=== PATIENT | female | born 1990 | race Two or more races ===

== ENCOUNTER 2018-09-10 16:31 | Emergency (ER) | payer MEDICARE, MEDICAID ==
[~2018-09-10] VITALS: Ht 152.4 cm; Wt 80.0 kg
[~2018-09-10 16:31] MED LIST: ATOR20TA66 PO; BLOO-384; DULO60CA45 PO; GABA-532 PO; HYDR-3972 PO; INSU100V30 SQ; LANTUS SUBCUT; LISI10TA4 PO; LORA-269 PO; PANT-47 PO
[2018-09-10 17:15] LABS: URINE HCG NEGATIVE (NEG)
[2018-09-10 17:16] LABS: CLARITY,URINE SLIGHTLY CLOUDY (Clear); COLOR,URINE YELLOW (Yellow); GLUCOSE, URINE 100 mg/dl (Neg); KETONES,URINE TRACE mg/dl (Neg); LEUKOCYTE ESTERASE ,URINE TRACE (Neg); NITRITES, URINE NEGATIVE (Neg); OCCULT BLOOD,URINE MODERATE (Neg); PROTEIN,URINE 100 mg/dl (Neg); UROBILINOGEN,URINE 0.2 E.U/dL (0.2-1.0)
[2018-09-10 17:24] LABS: UA COLLECTION TYPE CLN CATCH MIDSTREAM
[2018-09-10 17:30] LABS: MUCUS STRANDS MANY /LPF (Neg); SQUAMOUS EPITHELIAL CELL,UR MANY /LPF (FEW)
[2018-09-10] MEDS ORDERED: normal saline 1000ml 1,000 ML IV ONE (17:30)
[2018-09-10] MEDS ORDERED: ondansetron/PF 4mg/2ml inj IV ONE ×2 (17:30→17:40)
[2018-09-10 17:31] LABS: BACTERIA,URINE 3+ /HPF (Neg)
[2018-09-10] MEDS ORDERED: HYDROmorphone inj. 0.5 MG/0.5 ML DISP.SYRIN IV ONE (17:40)
[2018-09-10 17:55] LABS: BASOPHILS % (AUTO) 0 % (0-1); EOSINOPHILS # (AUTO) 0.1 X10'3 (0-0.9); EOSINOPHILS % (AUTO) 0.7 % (0-6); HEMATOCRIT 41.2 % (35.0-45.0); HEMOGLOBIN 13.8 g/dl (12.0-16.0); LYMPHOCYTES # (AUTO) 1.2 X10'3 (1.1-4.8); LYMPHOCYTES % (AUTO) 9.4 % (21-51); MEAN CORPUSCULAR HEMOGLOBIN 29.9 PG (27.0-31.0); MEAN CORPUSCULAR HGB CONC 33.5 % (33.0-36.5); MEAN CORPUSCULAR VOLUME 89.2 FL (78-98); MEAN PLATELET VOLUME 9.2 FL (7.4-10.4); MONOCYTES # (AUTO) 0.4 X10'3 (0-0.9); MONOCYTES % (AUTO) 3.5 % (2-12); NEUTROPHILS # (AUTO) 10.6 X10'3 (1.8-7.7); NEUTROPHILS % (AUTO) 86.4 % (42-75); PLATELET COUNT 325 X10'3 (140-440); RED BLOOD COUNT 4.62 X10'6 (4.20-5.60); RED CELL DISTRIBUTION WIDTH 14.5 % (11.5-14.5); WHITE BLOOD COUNT 12.3 X10'3 (4.5-11.0)
[2018-09-10 17:59] LABS: ALANINE AMINOTRANSFERASE 16 U/L (12-78); ALBUMIN 2.7 G/DL (3.4-5.0); ALBUMIN/GLOBULIN RATIO 0.7 (1.1-1.5); ALKALINE PHOSPHATASE 120 IU/L (46-116); ANION GAP 14 (8-16); ASPARTATE AMINO TRANSFERASE 13 U/L (10-37); BILIRUBIN,TOTAL 0.2 MG/DL (0.1-1.0); BLOOD UREA NITROGEN 30 MG/DL (7-18); BUN/CREATININE RATIO 32.3 (6.6-38.0); CALCIUM 8.7 MG/DL (8.5-10.1); CHLORIDE 102 MMOL/L (99-107); CREATININE 0.93 MG/DL (0.40-0.90); GLUCOSE 275 MG/DL (70-104); LIPASE 55 U/L (73-393); POTASSIUM 4.2 MMOL/L (3.5-5.1); SODIUM 139 MMOL/L (135-145); TOTAL CARBON DIOXIDE 22.7 MMOL/L (24-32); TOTAL PROTEIN 6.6 G/DL (6.4-8.2); eGFR 71 ML/MIN
[2018-09-10 18:41] LABS: TOTAL CELLS COUNTED 100
[2018-09-10 18:44] LABS: PLATELET ESTIMATE NORMAL
[2018-09-10 19:01] LABS: ABG BASE EXCESS -5.7 mmol/L (-2.0-3.0); ABG HCO3 17.2 mmol/L (22.0-26.0); ABG OXYGEN SATURATION 96.7 % (95-98); ABG PCO2 (T) 27.1 mmHg (32.0-45.0); ABG PH (T) 7.421 (7.350-7.450); ALLEN'S TEST Positive; FCOHb 1.7 % (0.5-1.5); FLOW 1 L/min; FO2Hb 95.1 % (94-100); PATIENT TEMPERATURE 36.8; TOTAL HEMOGLOBIN 13.8 G/dl (12.0-16.0)
[2018-09-10] MEDS ORDERED: HYDROmorphone 2mg/ml vial IV PRN (19:35)
[2018-09-10] MEDS ORDERED: HYDROmorphone 1 mg/ml syringe IV PRN (19:37)
[2018-09-10 20:18] LABS: URINE AMPHETAMINE SCREEN NEGATIVE (Neg); URINE BARBITUATE SCREEN NEGATIVE (Neg); URINE BENZODIAZEPINES SCREEN NEGATIVE (Neg); URINE CANNABINOID SCREEN POSITIVE (Neg); URINE COCAINE SCREEN NEGATIVE (Neg); URINE METHADONE SCREEN NEGATIVE (Neg); URINE OPIATE SCREEN POSITIVE (Neg); URINE PHENCYCLIDINE SCREEN NEGATIVE (Neg)
[2018-09-10] MEDS ORDERED: LORazepam 2 mg/ml vial IV ONE (20:45)
[2018-09-10] MEDS ORDERED: normal saline 1000ML IV soln IVB ONE (20:45)
[2018-09-10 22:06] VITALS: BP 141/88
[2018-09-10] MEDS ORDERED: OMEP20CA10 PO (22:14)
[2018-09-10] MEDS ORDERED: HYDR-3965 PO (22:14)
[2018-09-10] MEDS ORDERED: ONDA4TAB9 SL (22:14)
[2018-09-10] MEDS ORDERED: FAMO20TA44 PO (22:14)
[2018-09-10 22:50] LABS: CHOL/HDL RATIO 5.2 (0.00-4.99); CHOLESTEROL 258 MG/DL (0-200); HDL CHOLESTEROL 50 MG/DL (35-60); LDL CHOLESTEROL 162 MG/DL (50-100); TRIGLYCERIDES 328 MG/DL (20-135)
== END 2018-09-10 22:48 | disposition home or self-care (01) ==
LOC: ER 16:31
DX: E10.65 Type 1 diabetes mellitus with hyperglycemia (principal); F12.90 Cannabis use, unspecified, uncomplicated; E87.3 Alkalosis; E78.00 Pure hypercholesterolemia, unspecified; I10 Essential (primary) hypertension; Z86.69 Personal history of other diseases of the nervous system and sense organs; Z56.0 Unemployment, unspecified; Z98.890 Other specified postprocedural states; Z91.048 Other nonmedicinal substance allergy status; Z88.8 Allergy status to other drugs, medicaments and biological substances; Z79.899 Other long term (current) drug therapy; Z79.4 Long term (current) use of insulin
CPT/HCPCS: 36415; 36600; 74176; 80053; 80061; 80305; 81001; 81025; 82803; 82948; 83690; 84484; 85018; 85025; 85379; 96361; 96374; 96375; 96376; 99285; J1170; J2060; J2405

== ENCOUNTER 2018-09-18 04:29 | Inpatient (IN) | payer MEDICARE, MEDICAID ==
[~2018-09-18] VITALS: Ht 167.6 cm; Wt 87.0 kg
[~2018-09-18 04:29] MED LIST changes: +FAMO20TA44 PO; +HYDR-3965 PO; +OMEP20CA10 PO; +ONDA4TAB9 SL
[2018-09-18] MEDS ORDERED: normal saline 1000ML IV soln IVB ONE (04:45)
[2018-09-18] MEDS ORDERED: morphine 4 MG/ML inj SYRINge IV ONE (05:00)
[2018-09-18] MEDS ORDERED: ondansetron/PF 4mg/2ml inj IV ONE (05:00)
[2018-09-18 05:10] LABS: BASOPHILS % (AUTO) 0.3 % (0-1); EOSINOPHILS % (AUTO) 0.1 % (0-6); HEMATOCRIT 39.9 % (35.0-45.0); LYMPHOCYTES % (AUTO) 10.6 % (21-51); MEAN CORPUSCULAR HEMOGLOBIN 29.9 PG (27.0-31.0); MEAN CORPUSCULAR HGB CONC 32.5 % (33.0-36.5); MEAN CORPUSCULAR VOLUME 91.8 FL (78-98); MONOCYTES # (AUTO) 0.8 X10'3 (0-0.9); MONOCYTES % (AUTO) 8.2 % (2-12); NEUTROPHILS # (AUTO) 7.7 X10'3 (1.8-7.7); NEUTROPHILS % (AUTO) 80.8 % (42-75); PLATELET COUNT 320 X10'3 (140-440); RED BLOOD COUNT 4.34 X10'6 (4.20-5.60); RED CELL DISTRIBUTION WIDTH 14.9 % (11.5-14.5); WHITE BLOOD COUNT 9.5 X10'3 (4.5-11.0)
[2018-09-18 05:29] LABS: ALANINE AMINOTRANSFERASE 19 U/L (12-78); ALBUMIN 2.7 G/DL (3.4-5.0); ALBUMIN/GLOBULIN RATIO 0.6 (1.1-1.5); ALKALINE PHOSPHATASE 132 IU/L (46-116); ANION GAP 30 (8-16); ASPARTATE AMINO TRANSFERASE 18 U/L (10-37); BILIRUBIN,TOTAL 0.4 MG/DL (0.1-1.0); BLOOD UREA NITROGEN 16 MG/DL (7-18); BUN/CREATININE RATIO 13.6 (6.6-38.0); CALCIUM 8.5 MG/DL (8.5-10.1); CHLORIDE 93 MMOL/L (99-107); CREATININE 1.18 MG/DL (0.40-0.90); LIPASE < 50 U/L (73-393); POTASSIUM 4.8 MMOL/L (3.5-5.1); SODIUM 133 MMOL/L (135-145); eGFR 54 ML/MIN
[2018-09-18 05:41] LABS: GLUCOSE 614 MG/DL (70-104)
[2018-09-18 05:42] LABS: TOTAL CARBON DIOXIDE 10.5 MMOL/L (24-32)
[2018-09-18] MEDS ORDERED: sodium bicarbonate (8.4%) inj. 100 MEQ in dextrose 5% water 500ml 500 ML IV PRN ×2 (05:54→08:27)
[2018-09-18] MEDS ORDERED: sodium bicarbonate (8.4%) inj. 50 MEQ in dextrose 5% water 500ml 250 ML IV PRN ×2 (05:54→08:27)
[2018-09-18] MEDS ORDERED: insulin regular, DKA only 100 UNIT in normal saline 100ml IV soln 99 ML IV SCH ×6 (05:54→13:04)
[2018-09-18] MEDS ORDERED: sodium phosphate inj. 30 MMOL in dextrose 5%-water 250 ML IV PRN ×2 (05:55→08:30)
[2018-09-18] MEDS ORDERED: potassium Cl 40MEQ/NS 500ml 500 ML IV PRN ×4 (05:55→08:30)
[2018-09-18] MEDS ORDERED: insulin regular, human vial - multi-dose IV PRN ×2 (05:55→08:30)
[2018-09-18] MEDS ORDERED: potassium Cl 20 mEq SR tablet PO PRN ×3 (05:55→08:30)
[2018-09-18] MEDS ORDERED: Neutra Phos packet PO PRN (05:55)
[2018-09-18] MEDS ORDERED: sodium phosphate inj. 15 MMOL in dextrose 5%-water 150 ML IV PRN ×2 (05:55→08:30)
[2018-09-18 06:03] LABS: CLARITY,URINE CLEAR (Clear); COLOR,URINE YELLOW (Yellow); GLUCOSE, URINE >=1000 mg/dl (Neg); KETONES,URINE >=80 mg/dl (Neg); LEUKOCYTE ESTERASE ,URINE NEGATIVE (Neg); NITRITES, URINE NEGATIVE (Neg); OCCULT BLOOD,URINE MODERATE (Neg); PH,URINE 5.5 (4.8-8.0); PROTEIN,URINE 30 mg/dl (Neg); UROBILINOGEN,URINE 0.2 E.U/dL (0.2-1.0)
[2018-09-18 06:05] LABS: UA COLLECTION TYPE CLN CATCH MIDSTREAM
[2018-09-18 06:11] LABS: BACTERIA,URINE FEW /HPF (Neg); MUCUS STRANDS NONE SEEN /LPF (Neg); RBC,URINE NONE SEEN /HPF (0-2); SQUAMOUS EPITHELIAL CELL,UR MODERATE /LPF (FEW); WBC,URINE 0-4 /HPF (0-4)
[2018-09-18] MEDS: normal saline 1000ml 1,000 ML IV SCH ×5 (06:11→16:27)
[2018-09-18] MEDS ORDERED: proCHLORperazine 10 MG/2 ml inj IV ONE (07:00)
[2018-09-18] MEDS ORDERED: ONDA4TAB12 PO (07:18)
[2018-09-18] MEDS ORDERED: INSU100V11 (07:18)
[2018-09-18] MEDS ORDERED: OMEP-50 PO (07:18)
[2018-09-18] MEDS ORDERED: HYDR-4353 PO (07:19)
[2018-09-18 07:46] LABS: URINE HCG NEGATIVE (NEG)
[2018-09-18 07:56] LABS: OXYGEN SATURATION (MIXED VEN) 97.3 % (60-80)
[2018-09-18] MEDS ORDERED: K and/or MAG REPLACEMENT MC SCH (08:00)
[2018-09-18 08:21] LABS: ABG BASE EXCESS -25.2 mmol/L (-2.0-3.0); ABG HCO3 3.6 mmol/L (22.0-26.0); ABG OXYGEN SATURATION 91.5 % (95-98); ABG PH (T) 7.032 (7.350-7.450); ABG PO2 (T) 80.5 mmHg (83-108); ALLEN'S TEST Positive; FCOHb 0.5 % (0.5-1.5); FMetHb 0.1 % (0.3-1.12); TOTAL HEMOGLOBIN 12.4 G/dl (12.0-16.0)
[2018-09-18] MEDS ORDERED: potassium CL 20mEq in D5-1/2NS 1,000 ML IV PRN (08:27)
[2018-09-18] MEDS ORDERED: HYDROcodone/acetaminophen 5mg/325mg tablet PO PRN (08:30)
[2018-09-18] MEDS ORDERED: magnesium hydroxide 30ml (MOM) UD suspension PO PRN (08:30)
[2018-09-18] MEDS ORDERED: mag hydrox/Alum hydrox/simeth 30ml oral suspension PO PRN ×2 (08:30→08:45)
[2018-09-18] MEDS ORDERED: mag hydrox/Alum hydrox/simeth 30ml oral suspension PO ONE (08:30)
[2018-09-18] MEDS ORDERED: acetaminophen 325mg tablet PO PRN ×2 (08:30)
[2018-09-18] MEDS ORDERED: HYDROmorphone 1 mg/ml syringe IV PRN ×2 (08:30)
[2018-09-18] MEDS: sucralfate 1gm/10ml UD suspension PO SCH ×4 (08:34→21:05)
[2018-09-18] MEDS ORDERED: proCHLORperazine 10 MG/2 ml inj IV PRN (08:45)
[2018-09-18 09:28] LABS: ANION GAP 24 (8-16); BLOOD UREA NITROGEN 16 MG/DL (7-18); BUN/CREATININE RATIO 16.7 (6.6-38.0); CALCIUM 6.3 MG/DL (8.5-10.1); CHLORIDE 111 MMOL/L (99-107); CREATININE 0.96 MG/DL (0.40-0.90); GLUCOSE 370 MG/DL (70-104); PHOSPHORUS 2.7 MG/DL (2.3-4.5); POTASSIUM 3.7 MMOL/L (3.5-5.1); SODIUM 142 MMOL/L (135-145); eGFR 68 ML/MIN
[2018-09-18 09:39] LABS: TOTAL CARBON DIOXIDE 7.3 MMOL/L (24-32)
[2018-09-18 10:30] VITALS: BP 123/79
[2018-09-18] MEDS ORDERED: HYDROCORTISONE 0.5% TP SCH (13:00)
[2018-09-18 13:46] LABS: ABG BASE EXCESS -10.7 mmol/L (-2.0-3.0); ABG HCO3 14.1 mmol/L (22.0-26.0); ABG OXYGEN SATURATION 97.3 % (95-98); ABG PCO2 (T) 28.3 mmHg (32.0-45.0); ABG PH (T) 7.314 (7.350-7.450); ABG PO2 (T) 96.3 mmHg (83-108); ALLEN'S TEST Positive; FCOHb 0.3 % (0.5-1.5); RESPIRATORY RATE (OBSERVED) 16 b/min; TOTAL HEMOGLOBIN 12.4 G/dl (12.0-16.0)
[2018-09-18 15:11] LABS: ALBUMIN 2.1 G/DL (3.4-5.0); ANION GAP 14 (8-16); BLOOD UREA NITROGEN 13 MG/DL (7-18); BUN/CREATININE RATIO 15.5 (6.6-38.0); CALCIUM 7.3 MG/DL (8.5-10.1); CHLORIDE 112 MMOL/L (99-107); CREATININE 0.84 MG/DL (0.40-0.90); GLUCOSE 88 MG/DL (70-104); PHOSPHORUS 2.2 MG/DL (2.3-4.5); SODIUM 143 MMOL/L (135-145); TOTAL CARBON DIOXIDE 17.5 MMOL/L (24-32); eGFR 80 ML/MIN
[2018-09-18] MEDS: HYDROcodone/acetaminophen 10/325mg tab PO PRN ×2 (15:16→21:04)
[2018-09-18] MEDS: potassium CL 20mEq in D5-1/2NS 1,000 ML IV SCH ×2 (15:53→17:22)
[2018-09-18 16:06] VITALS: BP 165/92
[2018-09-18 19:00] VITALS: BP 164/95
[2018-09-18 20:03] LABS: ANION GAP 10 (8-16); BLOOD UREA NITROGEN 8 MG/DL (7-18); BUN/CREATININE RATIO 11.6 (6.6-38.0); CHLORIDE 110 MMOL/L (99-107); CREATININE 0.69 MG/DL (0.40-0.90); GLUCOSE 82 MG/DL (70-104); PHOSPHORUS 1.6 MG/DL (2.3-4.5); POTASSIUM 3.5 MMOL/L (3.5-5.1); SODIUM 140 MMOL/L (135-145); TOTAL CARBON DIOXIDE 20.1 MMOL/L (24-32); eGFR > 90 ML/MIN
[2018-09-18] MEDS: atorvastatin 20mg tablet PO SCH (20:11)
[2018-09-18] MEDS: LORazepam 1 MG tablet PO SCH (20:11)
[2018-09-18] MEDS: pantoprazole 40mg Tablet.DR PO SCH (20:12)
[2018-09-18] MEDS: temazepam 15mg capsule PO PRN (21:05)
[2018-09-18 23:04] VITALS: BP 148/93
[2018-09-18] MEDS ORDERED: insulin glargine (Lantus) pen - multi-dose SQ ONE (23:40)
[2018-09-19] MEDS: normal saline 1000ml 1,000 ML IV SCH ×6 (00:27→23:42)
[2018-09-19] MEDS: potassium CL 20mEq in D5-1/2NS 1,000 ML IV SCH ×4 (01:20→15:42)
[2018-09-19] MEDS: insulin Lispro (HumaLOG) vial - multi-dose SQ SCH ×3 (02:04→08:43)
[2018-09-19] MEDS: HYDROcodone/acetaminophen 10/325mg tab PO PRN ×3 (02:39→10:51)
[2018-09-19 03:09] VITALS: BP 140/88
[2018-09-19] MEDS: sucralfate 1gm/10ml UD suspension PO SCH ×5 (06:56→21:03)
[2018-09-19 07:23] LABS: ANION GAP 11 (8-16); BLOOD UREA NITROGEN 6 MG/DL (7-18); CALCIUM 7.6 MG/DL (8.5-10.1); CHLORIDE 108 MMOL/L (99-107); CREATININE 0.75 MG/DL (0.40-0.90); GLUCOSE 142 MG/DL (70-104); PHOSPHORUS 1.4 MG/DL (2.3-4.5); POTASSIUM 3.6 MMOL/L (3.5-5.1); SODIUM 139 MMOL/L (135-145); TOTAL CARBON DIOXIDE 19.8 MMOL/L (24-32); eGFR > 90 ML/MIN
[2018-09-19 07:33] VITALS: BP 141/85
[2018-09-19] MEDS ORDERED: dextrose ORAL solution 15 GM/59 ML bottle PO PRN ×2 (07:50)
[2018-09-19] MEDS ORDERED: insulin Lispro (HumaLOG) vial - multi-dose SQ SCH (07:50)
[2018-09-19] MEDS ORDERED: dextrose 50%-water 50ml dispensing syringe IV PRN ×2 (07:50)
[2018-09-19] MEDS ORDERED: glucagon, human recombinant 1mg kit SUBCUT PRN (07:50)
[2018-09-19] MEDS: K and/or MAG REPLACEMENT MC SCH (08:00)
[2018-09-19] MEDS ORDERED: insulin glargine (Lantus) pen - multi-dose SQ SCH ×2 (08:00→21:00)
[2018-09-19] MEDS: pantoprazole 40mg Tablet.DR PO SCH ×2 (08:32→21:03)
[2018-09-19] MEDS: lisinopril 10 MG tablet PO SCH (08:32)
[2018-09-19] MEDS: LORazepam 1 MG tablet PO SCH ×2 (08:32→21:03)
[2018-09-19] MEDS: duloxetine 30mg CAPSULE.DR PO SCH (08:33)
[2018-09-19] MEDS: Neutra Phos packet PO PRN ×2 (09:15→15:59)
[2018-09-19] MEDS: ondansetron/PF 4mg/2ml inj IV PRN ×2 (10:51→17:50)
[2018-09-19 12:21] VITALS: BP 164/99
[2018-09-19 15:50] VITALS: BP 157/98
[2018-09-19 18:00] VITALS: BP 184/106
[2018-09-19] MEDS ORDERED: morphine 2 MG/ML inj. syringe IV PRN (18:05)
[2018-09-19] MEDS ORDERED: HYDROmorphone inj. 0.5 MG/0.5 ML DISP.SYRIN IV PRN (19:10)
[2018-09-19] MEDS ORDERED: iohexol 350MG/ML 100ml bottle IV ONE (19:30)
[2018-09-19] MEDS: HYDROmorphone 1 mg/ml syringe IV PRN (19:36)
[2018-09-19] MEDS: MESSAGE TO NURSING PO SCH (19:50)
[2018-09-19] MEDS ORDERED: Neutra Phos packet PO PRN (20:50)
[2018-09-19] MEDS: insulin glargine (Lantus) pen - multi-dose SQ SCH (20:59)
[2018-09-19] MEDS: atorvastatin 20mg tablet PO SCH (21:03)
[2018-09-19] MEDS ORDERED: amLODIPine 2.5mg tablet PO ONE (22:45)
[2018-09-20] VITALS (7 sets, daily range): BP systolic 164–190; BP diastolic 92–117
[2018-09-20] MEDS ORDERED: enalaprilat dihydrate 2.5mg/2ml vial IV SCH (03:10)
[2018-09-20] MEDS: HYDROmorphone 1 mg/ml syringe IV PRN ×4 (03:43→21:03)
[2018-09-20] MEDS: normal saline 1000ml 1,000 ML IV SCH ×2 (06:08→07:58)
[2018-09-20 06:56] LABS: BASOPHILS % (AUTO) 0.2 % (0-1); EOSINOPHILS % (AUTO) 0.2 % (0-6); HEMATOCRIT 34.2 % (35.0-45.0); HEMOGLOBIN 11.3 g/dl (12.0-16.0); LYMPHOCYTES # (AUTO) 1.1 X10'3 (1.1-4.8); LYMPHOCYTES % (AUTO) 19.9 % (21-51); MEAN CORPUSCULAR HEMOGLOBIN 29.6 PG (27.0-31.0); MEAN CORPUSCULAR VOLUME 89.6 FL (78-98); MEAN PLATELET VOLUME 8.2 FL (7.4-10.4); MONOCYTES # (AUTO) 0.6 X10'3 (0-0.9); MONOCYTES % (AUTO) 10.1 % (2-12); NEUTROPHILS # (AUTO) 3.9 X10'3 (1.8-7.7); NEUTROPHILS % (AUTO) 69.6 % (42-75); PLATELET COUNT 258 X10'3 (140-440); RED BLOOD COUNT 3.82 X10'6 (4.20-5.60); RED CELL DISTRIBUTION WIDTH 14.7 % (11.5-14.5); WHITE BLOOD COUNT 5.6 X10'3 (4.5-11.0)
[2018-09-20] MEDS: sucralfate 1gm/10ml UD suspension PO SCH ×5 (07:00→21:10)
[2018-09-20 07:02] LABS: ALBUMIN 1.9 G/DL (3.4-5.0); ANION GAP 8 (8-16); BLOOD UREA NITROGEN 3 MG/DL (7-18); BUN/CREATININE RATIO 5.9 (6.6-38.0); CALCIUM 7.4 MG/DL (8.5-10.1); CHLORIDE 105 MMOL/L (99-107); CREATININE 0.51 MG/DL (0.40-0.90); GLUCOSE 116 MG/DL (70-104); LIPASE < 50 U/L (73-393); MAGNESIUM 1.7 MG/DL (1.5-2.4); PHOSPHORUS 2.5 MG/DL (2.3-4.5); POTASSIUM 3.4 MMOL/L (3.5-5.1); SODIUM 139 MMOL/L (135-145); TOTAL CARBON DIOXIDE 25.7 MMOL/L (24-32); eGFR > 90 ML/MIN
[2018-09-20] MEDS: potassium Cl 20 mEq SR tablet PO PRN ×3 (07:58→16:16)
[2018-09-20] MEDS: LORazepam 1 MG tablet PO SCH ×2 (08:00→21:09)
[2018-09-20] MEDS: duloxetine 30mg CAPSULE.DR PO SCH (08:00)
[2018-09-20] MEDS: lisinopril 10 MG tablet PO SCH (08:01)
[2018-09-20] MEDS: K and/or MAG REPLACEMENT MC SCH (08:22)
[2018-09-20] MEDS: pantoprazole 40mg Tablet.DR PO SCH ×2 (08:33→21:20)
[2018-09-20] MEDS: CefTRIAXone 2gm/D5W 50ml 50 ML IV SCH (09:25)
[2018-09-20] MEDS: metroNIDAZOLE-Flagyl 500mg/NS 100 ML IV SCH ×2 (09:25→16:17)
[2018-09-20] MEDS: MESSAGE TO NURSING PO SCH (10:12)
[2018-09-20] MEDS: HYDROcodone/acetaminophen 10/325mg tab PO PRN (19:03)
[2018-09-20] MEDS ORDERED: enalaprilat dihydrate 2.5mg/2ml vial IV ONE (19:20)
[2018-09-20] MEDS ORDERED: glucagon, human recombinant 1mg kit SUBCUT PRN (19:20)
[2018-09-20] MEDS ORDERED: MESSAGE TO PHARMACY PO ONE (19:20)
[2018-09-20] MEDS ORDERED: dextrose ORAL solution 15 GM/59 ML bottle PO PRN ×2 (19:20)
[2018-09-20] MEDS ORDERED: dextrose 50%-water 50ml dispensing syringe IV PRN ×2 (19:20)
[2018-09-20] MEDS: insulin Lispro (HumaLOG) vial - multi-dose SQ SCH (19:54)
[2018-09-20] MEDS: atorvastatin 20mg tablet PO SCH (21:10)
[2018-09-20] MEDS: insulin glargine (Lantus) pen - multi-dose SQ SCH (21:16)
[2018-09-20] MEDS: temazepam 15mg capsule PO PRN (21:19)
[2018-09-21] VITALS (12 sets, daily range): BP systolic 146–199; BP diastolic 95–160
[2018-09-21] MEDS: metroNIDAZOLE-Flagyl 500mg/NS 100 ML IV SCH ×3 (00:20→17:08)
[2018-09-21] MEDS: normal saline 1000ml 1,000 ML IV SCH ×3 (00:21→22:19)
[2018-09-21] MEDS: HYDROmorphone 1 mg/ml syringe IV PRN ×3 (02:58→19:46)
[2018-09-21] MEDS: K and/or MAG REPLACEMENT MC SCH (06:57)
[2018-09-21] MEDS: sucralfate 1gm/10ml UD suspension PO SCH ×4 (07:00→22:19)
[2018-09-21] MEDS: pantoprazole 40mg Tablet.DR PO SCH ×2 (07:00→19:15)
[2018-09-21] MEDS: LORazepam 1 MG tablet PO SCH ×2 (07:01→19:15)
[2018-09-21] MEDS: HYDROcodone/acetaminophen 10/325mg tab PO PRN (07:01)
[2018-09-21] MEDS: duloxetine 30mg CAPSULE.DR PO SCH (07:02)
[2018-09-21] MEDS: CefTRIAXone 2gm/D5W 50ml 50 ML IV SCH (07:02)
[2018-09-21 07:04] LABS: BASOPHILS % (AUTO) 0.4 % (0-1); EOSINOPHILS % (AUTO) 0.8 % (0-6); HEMATOCRIT 34.6 % (35.0-45.0); HEMOGLOBIN 11.3 g/dl (12.0-16.0); LYMPHOCYTES # (AUTO) 1.5 X10'3 (1.1-4.8); LYMPHOCYTES % (AUTO) 25.3 % (21-51); MEAN CORPUSCULAR HEMOGLOBIN 29.7 PG (27.0-31.0); MEAN CORPUSCULAR HGB CONC 32.5 % (33.0-36.5); MEAN CORPUSCULAR VOLUME 91.2 FL (78-98); MEAN PLATELET VOLUME 8.3 FL (7.4-10.4); MONOCYTES # (AUTO) 0.4 X10'3 (0-0.9); MONOCYTES % (AUTO) 7.6 % (2-12); NEUTROPHILS # (AUTO) 3.9 X10'3 (1.8-7.7); NEUTROPHILS % (AUTO) 65.9 % (42-75); PLATELET COUNT 262 X10'3 (140-440); RED BLOOD COUNT 3.79 X10'6 (4.20-5.60); RED CELL DISTRIBUTION WIDTH 14.9 % (11.5-14.5); WHITE BLOOD COUNT 5.9 X10'3 (4.5-11.0)
[2018-09-21] MEDS: lisinopril 10 MG tablet PO SCH (07:18)
[2018-09-21 07:20] LABS: ALBUMIN 1.9 G/DL (3.4-5.0); ANION GAP 7 (8-16); BLOOD UREA NITROGEN 4 MG/DL (7-18); BUN/CREATININE RATIO 7.4 (6.6-38.0); CALCIUM 8.4 MG/DL (8.5-10.1); CHLORIDE 107 MMOL/L (99-107); CREATININE 0.54 MG/DL (0.40-0.90); GLUCOSE 231 MG/DL (70-104); MAGNESIUM 1.7 MG/DL (1.5-2.4); PHOSPHORUS 3.3 MG/DL (2.3-4.5); POTASSIUM 3.8 MMOL/L (3.5-5.1); SODIUM 141 MMOL/L (135-145); TOTAL CARBON DIOXIDE 27.1 MMOL/L (24-32); eGFR > 90 ML/MIN
[2018-09-21] MEDS: lactobacillus rhamnosus 10,000 MMU CELLS/CAPSULE PO SCH ×2 (07:21→19:15)
[2018-09-21] MEDS: insulin Lispro (HumaLOG) vial - multi-dose SQ SCH ×2 (09:07→19:26)
[2018-09-21] MEDS: MESSAGE TO NURSING PO SCH (10:00)
[2018-09-21] MEDS ORDERED: enalaprilat dihydrate 2.5mg/2ml vial IV ONE (13:05)
[2018-09-21 13:36] LABS: C DIFF ANTIGEN SEE COMMENTS (NEGATIVE); C DIFF SPECIMEN=DIARRHEA? ACCEPTABLE; C DIFFICILE TOXINS A&B NEGATIVE (Neg)
[2018-09-21] MEDS ORDERED: HYDROmorphone 1 mg/ml syringe IV ONE (14:25)
[2018-09-21] MEDS ORDERED: labetalol 20mg/4ml (5mg/ml) syringe IV ONE (14:25)
[2018-09-21 15:01] LABS: C DIFF TOXIN (LAMP) NEGATIVE (NEG)
[2018-09-21] MEDS ORDERED: lisinopril 10 MG tablet PO ONE (16:40)
[2018-09-21] MEDS: nitroGLYCERIN 0.4mg SUBLingual tab SL PRN ×3 (18:50→19:12)
[2018-09-21] MEDS: enalaprilat dihydrate 2.5mg/2ml vial IV PRN (19:47)
[2018-09-21] MEDS ORDERED: insulin glargine (Lantus) pen - multi-dose SQ ONE (21:00)
[2018-09-21] MEDS: atorvastatin 20mg tablet PO SCH (22:19)
[2018-09-21] MEDS: temazepam 15mg capsule PO PRN (22:19)
[2018-09-21] MEDS: labetalol 20mg/4ml (5mg/ml) syringe IV PRN (22:36)
[2018-09-22] VITALS (15 sets, daily range): BP systolic 144–220; BP diastolic 94–130
[2018-09-22] MEDS: metroNIDAZOLE-Flagyl 500mg/NS 100 ML IV SCH ×3 (00:36→16:11)
[2018-09-22 00:55] LABS: BASOPHILS % (AUTO) 0.8 % (0-1); EOSINOPHILS # (AUTO) 0.1 X10'3 (0-0.9); EOSINOPHILS % (AUTO) 1.7 % (0-6); HEMATOCRIT 31.9 % (35.0-45.0); HEMOGLOBIN 10.7 g/dl (12.0-16.0); LYMPHOCYTES # (AUTO) 1.7 X10'3 (1.1-4.8); LYMPHOCYTES % (AUTO) 41.7 % (21-51); MEAN CORPUSCULAR HEMOGLOBIN 30.2 PG (27.0-31.0); MEAN CORPUSCULAR HGB CONC 33.5 % (33.0-36.5); MEAN CORPUSCULAR VOLUME 90.2 FL (78-98); MEAN PLATELET VOLUME 8.3 FL (7.4-10.4); MONOCYTES # (AUTO) 0.4 X10'3 (0-0.9); NEUTROPHILS % (AUTO) 45.8 % (42-75); PLATELET COUNT 223 X10'3 (140-440); RED BLOOD COUNT 3.54 X10'6 (4.20-5.60); RED CELL DISTRIBUTION WIDTH 13.6 % (11.5-14.5); WHITE BLOOD COUNT 4.2 X10'3 (4.5-11.0)
[2018-09-22] MEDS: HYDROmorphone 1 mg/ml syringe IV PRN ×9 (00:56→23:17)
[2018-09-22 01:11] LABS: ALBUMIN 1.8 G/DL (3.4-5.0); ANION GAP 8 (8-16); BLOOD UREA NITROGEN 5 MG/DL (7-18); BUN/CREATININE RATIO 8.8 (6.6-38.0); CALCIUM 7.7 MG/DL (8.5-10.1); CHLORIDE 107 MMOL/L (99-107); CREATININE 0.57 MG/DL (0.40-0.90); GLUCOSE 220 MG/DL (70-104); MAGNESIUM 1.5 MG/DL (1.5-2.4); PHOSPHORUS 3.7 MG/DL (2.3-4.5); POTASSIUM 3.2 MMOL/L (3.5-5.1); SODIUM 143 MMOL/L (135-145); TOTAL CARBON DIOXIDE 27.8 MMOL/L (24-32); TROPONIN I < 0.04 NG/ML (0.0-0.05); eGFR > 90 ML/MIN
[2018-09-22] MEDS ORDERED: magnesium 4gm in 100ml NS 100 ML IV PRN (01:40)
[2018-09-22] MEDS ORDERED: potassium Cl 20 mEq SR tablet PO PRN (01:40)
[2018-09-22] MEDS ORDERED: potassium Cl 40MEQ/NS 500ml 500 ML IV PRN ×2 (01:40)
[2018-09-22] MEDS: potassium Cl 20 mEq SR tablet PO PRN ×3 (04:34→12:33)
[2018-09-22] MEDS: enalaprilat dihydrate 2.5mg/2ml vial IV PRN ×2 (04:36→11:48)
[2018-09-22] MEDS: normal saline 1000ml 1,000 ML IV SCH ×3 (06:05→23:12)
[2018-09-22] MEDS: labetalol 20mg/4ml (5mg/ml) syringe IV PRN ×3 (06:53→19:11)
[2018-09-22] MEDS: lactobacillus rhamnosus 10,000 MMU CELLS/CAPSULE PO SCH ×2 (07:41→19:10)
[2018-09-22] MEDS: duloxetine 30mg CAPSULE.DR PO SCH (07:41)
[2018-09-22] MEDS: pantoprazole 40mg Tablet.DR PO SCH ×2 (07:41→19:10)
[2018-09-22] MEDS: sucralfate 1gm/10ml UD suspension PO SCH ×4 (07:41→21:17)
[2018-09-22] MEDS: LORazepam 1 MG tablet PO SCH ×2 (07:41→19:10)
[2018-09-22] MEDS: CefTRIAXone 2gm/D5W 50ml 50 ML IV SCH (07:41)
[2018-09-22] MEDS: lisinopril 20mg tablet PO SCH (07:42)
[2018-09-22] MEDS: insulin Lispro (HumaLOG) vial - multi-dose SQ SCH ×3 (08:29→19:19)
[2018-09-22] MEDS: K and/or MAG REPLACEMENT MC SCH (08:32)
[2018-09-22] MEDS ORDERED: amLODIPine 5mg tablet PO ONE (12:55)
[2018-09-22] MEDS: ondansetron/PF 4mg/2ml inj IV PRN (13:51)
[2018-09-22 19:36] LABS: CLARITY,URINE CLEAR (Clear); COLOR,URINE STRAW (Yellow); GLUCOSE, URINE >=1000 mg/dl (Neg); KETONES,URINE NEGATIVE (Neg); LEUKOCYTE ESTERASE ,URINE NEGATIVE (Neg); NITRITES, URINE NEGATIVE (Neg); OCCULT BLOOD,URINE MODERATE (Neg); PH,URINE 6.5 (4.8-8.0); PROTEIN,URINE 100 mg/dl (Neg); UROBILINOGEN,URINE 0.2 E.U/dL (0.2-1.0)
[2018-09-22 19:41] LABS: UA COLLECTION TYPE VOIDED
[2018-09-22 19:43] LABS: BACTERIA,URINE FEW /HPF (Neg); SQUAMOUS EPITHELIAL CELL,UR FEW /LPF (FEW); WBC,URINE 0-4 /HPF (0-4); YEAST FEW /HPF (NEGATIVE)
[2018-09-22] MEDS: atorvastatin 20mg tablet PO SCH (21:17)
[2018-09-22] MEDS: temazepam 15mg capsule PO PRN (21:18)
[2018-09-22] MEDS: insulin glargine (Lantus) pen - multi-dose SQ SCH (21:29)
[2018-09-23] VITALS (8 sets, daily range): BP systolic 139–180; BP diastolic 88–108
[2018-09-23] MEDS: metroNIDAZOLE-Flagyl 500mg/NS 100 ML IV SCH ×2 (00:18→08:20)
[2018-09-23] MEDS: temazepam 15mg capsule PO PRN ×2 (00:19→21:45)
[2018-09-23] MEDS: HYDROmorphone 1 mg/ml syringe IV PRN ×3 (05:05→09:45)
[2018-09-23 05:47] LABS: BASOPHILS # (AUTO) 0.1 X10'3 (0-0.2); BASOPHILS % (AUTO) 1.1 % (0-1); EOSINOPHILS # (AUTO) 0.2 X10'3 (0-0.9); EOSINOPHILS % (AUTO) 2.9 % (0-6); HEMATOCRIT 35.1 % (35.0-45.0); HEMOGLOBIN 11.5 g/dl (12.0-16.0); LYMPHOCYTES # (AUTO) 2.7 X10'3 (1.1-4.8); LYMPHOCYTES % (AUTO) 47.5 % (21-51); MEAN CORPUSCULAR HEMOGLOBIN 29.6 PG (27.0-31.0); MEAN CORPUSCULAR HGB CONC 32.7 % (33.0-36.5); MEAN CORPUSCULAR VOLUME 90.6 FL (78-98); MEAN PLATELET VOLUME 8.5 FL (7.4-10.4); MONOCYTES # (AUTO) 0.4 X10'3 (0-0.9); MONOCYTES % (AUTO) 7.2 % (2-12); NEUTROPHILS # (AUTO) 2.4 X10'3 (1.8-7.7); NEUTROPHILS % (AUTO) 41.3 % (42-75); PLATELET COUNT 290 X10'3 (140-440); RED BLOOD COUNT 3.87 X10'6 (4.20-5.60); RED CELL DISTRIBUTION WIDTH 14.9 % (11.5-14.5); WHITE BLOOD COUNT 5.8 X10'3 (4.5-11.0)
[2018-09-23 05:56] LABS: ANION GAP 5 (8-16); BLOOD UREA NITROGEN 7 MG/DL (7-18); BUN/CREATININE RATIO 10.8 (6.6-38.0); CALCIUM 8.6 MG/DL (8.5-10.1); CHLORIDE 107 MMOL/L (99-107); CREATININE 0.65 MG/DL (0.40-0.90); GLUCOSE 135 MG/DL (70-104); MAGNESIUM 1.4 MG/DL (1.5-2.4); PHOSPHORUS 4.2 MG/DL (2.3-4.5); POTASSIUM 3.7 MMOL/L (3.5-5.1); SODIUM 142 MMOL/L (135-145); TOTAL CARBON DIOXIDE 29.9 MMOL/L (24-32); eGFR > 90 ML/MIN
[2018-09-23] MEDS: sucralfate 1gm/10ml UD suspension PO SCH ×4 (06:59→21:46)
[2018-09-23] MEDS: CefTRIAXone 2gm/D5W 50ml 50 ML IV SCH (07:00)
[2018-09-23] MEDS: LORazepam 1 MG tablet PO SCH ×2 (07:23→19:16)
[2018-09-23] MEDS: duloxetine 30mg CAPSULE.DR PO SCH (07:24)
[2018-09-23] MEDS: lactobacillus rhamnosus 10,000 MMU CELLS/CAPSULE PO SCH ×2 (07:24→19:17)
[2018-09-23] MEDS: amLODIPine 5mg tablet PO SCH (07:25)
[2018-09-23] MEDS: lisinopril 20mg tablet PO SCH (07:25)
[2018-09-23] MEDS: pantoprazole 40mg Tablet.DR PO SCH ×2 (07:25→19:18)
[2018-09-23] MEDS: magnesium Cl slow-release 64mg tablet PO PRN (07:26)
[2018-09-23] MEDS: K and/or MAG REPLACEMENT MC SCH (08:00)
[2018-09-23] MEDS: insulin Lispro (HumaLOG) vial - multi-dose SQ SCH ×3 (08:27→19:28)
[2018-09-23] MEDS: labetalol 20mg/4ml (5mg/ml) syringe IV PRN (09:44)
[2018-09-23] MEDS ORDERED: lisinopril 20mg tablet PO STA (11:25)
[2018-09-23] MEDS ORDERED: LEVO500T2 PO (12:21)
[2018-09-23] MEDS ORDERED: HYDR-3972 PO (12:21)
[2018-09-23] MEDS ORDERED: ATI1T PO (12:21)
[2018-09-23] MEDS ORDERED: LISI-600 PO (12:21)
[2018-09-23] MEDS ORDERED: METR500T PO (12:21)
[2018-09-23] MEDS: normal saline 1000ml 1,000 ML IV SCH ×2 (12:51→21:53)
[2018-09-23] MEDS: HYDROcodone/acetaminophen 10/325mg tab PO PRN ×2 (13:10→21:46)
[2018-09-23] MEDS ORDERED: HYDR-4069 PO (14:09)
[2018-09-23] MEDS: hyDRALAzine 10mg tablet PO SCH ×2 (14:41→16:17)
[2018-09-23] MEDS ORDERED: hyDRALAzine 10mg tablet PO SCH (16:00)
[2018-09-23] MEDS: metroNIDAZOLE 500mg tablet PO SCH (16:17)
[2018-09-23] MEDS ORDERED: ketorolac trometh. 30mg/ml inj. IV ONE (17:30)
[2018-09-23] MEDS ORDERED: ibuprofen tablet 400 MG TABLET PO PRN (18:00)
[2018-09-23] MEDS ORDERED: diphenoxylate/atropine tablet (Lomotil) PO PRN (18:55)
[2018-09-23] MEDS ORDERED: HYDROmorphone 1 mg/ml syringe IV ONE (18:55)
[2018-09-23] MEDS: ondansetron/PF 4mg/2ml inj IV PRN (19:31)
[2018-09-23] MEDS: atorvastatin 20mg tablet PO SCH (21:44)
[2018-09-23] MEDS: insulin glargine (Lantus) pen - multi-dose SQ SCH (21:51)
[2018-09-24] MEDS: magnesium Cl slow-release 64mg tablet PO PRN ×2 (00:23→07:16)
[2018-09-24] MEDS: hyDRALAzine 10mg tablet PO SCH ×2 (00:24→07:17)
[2018-09-24] MEDS: metroNIDAZOLE 500mg tablet PO SCH ×2 (00:24→07:18)
[2018-09-24 03:00] VITALS: BP 148/86
[2018-09-24] MEDS: HYDROcodone/acetaminophen 10/325mg tab PO PRN ×2 (03:08→08:11)
[2018-09-24 05:22] LABS: BASOPHILS % (AUTO) 0.3 % (0-1); EOSINOPHILS # (AUTO) 0.2 X10'3 (0-0.9); EOSINOPHILS % (AUTO) 2.9 % (0-6); HEMATOCRIT 34.2 % (35.0-45.0); LYMPHOCYTES # (AUTO) 2.6 X10'3 (1.1-4.8); LYMPHOCYTES % (AUTO) 46.5 % (21-51); MEAN CORPUSCULAR HEMOGLOBIN 28.9 PG (27.0-31.0); MEAN CORPUSCULAR HGB CONC 32.2 % (33.0-36.5); MEAN CORPUSCULAR VOLUME 89.6 FL (78-98); MEAN PLATELET VOLUME 7.7 FL (7.4-10.4); MONOCYTES # (AUTO) 0.5 X10'3 (0-0.9); MONOCYTES % (AUTO) 8.8 % (2-12); NEUTROPHILS # (AUTO) 2.3 X10'3 (1.8-7.7); NEUTROPHILS % (AUTO) 41.5 % (42-75); PLATELET COUNT 306 X10'3 (140-440); RED BLOOD COUNT 3.82 X10'6 (4.20-5.60); RED CELL DISTRIBUTION WIDTH 14.4 % (11.5-14.5); WHITE BLOOD COUNT 5.6 X10'3 (4.5-11.0)
[2018-09-24 06:00] VITALS: BP 175/107
[2018-09-24 06:00] LABS: ALBUMIN 1.9 G/DL (3.4-5.0); ANION GAP 6 (8-16); BLOOD UREA NITROGEN 9 MG/DL (7-18); BUN/CREATININE RATIO 12.3 (6.6-38.0); CALCIUM 8.4 MG/DL (8.5-10.1); CHLORIDE 105 MMOL/L (99-107); CREATININE 0.73 MG/DL (0.40-0.90); GLUCOSE 288 MG/DL (70-104); MAGNESIUM 1.4 MG/DL (1.5-2.4); PHOSPHORUS 3.8 MG/DL (2.3-4.5); POTASSIUM 3.8 MMOL/L (3.5-5.1); SODIUM 140 MMOL/L (135-145); eGFR > 90 ML/MIN
[2018-09-24] MEDS: sucralfate 1gm/10ml UD suspension PO SCH ×2 (07:15→11:36)
[2018-09-24] MEDS: K and/or MAG REPLACEMENT MC SCH (07:16)
[2018-09-24] MEDS: CefTRIAXone 2gm/D5W 50ml 50 ML IV SCH (07:16)
[2018-09-24] MEDS: LORazepam 1 MG tablet PO SCH (07:17)
[2018-09-24] MEDS: lactobacillus rhamnosus 10,000 MMU CELLS/CAPSULE PO SCH (07:17)
[2018-09-24] MEDS: pantoprazole 40mg Tablet.DR PO SCH (07:18)
[2018-09-24] MEDS: amLODIPine 5mg tablet PO SCH (07:18)
[2018-09-24] MEDS: duloxetine 30mg CAPSULE.DR PO SCH (07:18)
[2018-09-24 08:00] VITALS: BP 176/94
[2018-09-24] MEDS ORDERED: lisinopril 20mg tablet PO SCH (08:00)
[2018-09-24] MEDS: insulin Lispro (HumaLOG) vial - multi-dose SQ SCH (09:40)
[2018-09-24] MEDS: normal saline 1000ml 1,000 ML IV SCH (09:50)
[2018-09-24 11:00] VITALS: BP 158/96
[2018-09-24] MEDS ORDERED: metoprolol tartrate 25mg tablet PO SCH (20:00)
== END 2018-09-24 14:10 | disposition home or self-care (01) | DRG 682 ==
LOC: ER 04:30 → ED HOLD 08:27 → PCU 3S 10:30
PROVIDERS: ADMIT Family Medicine; ATTEND Internal Medicine
PROC: B4201ZZ Computerized Tomography (CT Scan) of Abdominal Aorta using Low Osmolar Contrast (ICD-10-PCS; principal; 2018-09-19)
PROC: B4241ZZ Computerized Tomography (CT Scan) of Superior Mesenteric Artery using Low Osmolar Contrast (ICD-10-PCS; 2018-09-19)
PROC: B4281ZZ Computerized Tomography (CT Scan) of Bilateral Renal Arteries using Low Osmolar Contrast (ICD-10-PCS; 2018-09-19)
PROC: B42C1ZZ Computerized Tomography (CT Scan) of Pelvic Arteries using Low Osmolar Contrast (ICD-10-PCS; 2018-09-19)
PROC: B4211ZZ Computerized Tomography (CT Scan) of Celiac Artery using Low Osmolar Contrast (ICD-10-PCS; 2018-09-19)
DX: N17.9 Acute kidney failure, unspecified (principal); E10.10 Type 1 diabetes mellitus with ketoacidosis without coma; K86.1 Other chronic pancreatitis; E87.1 Hypo-osmolality and hyponatremia; A09 Infectious gastroenteritis and colitis, unspecified; F31.9 Bipolar disorder, unspecified; F20.9 Schizophrenia, unspecified; E78.00 Pure hypercholesterolemia, unspecified; E86.0 Dehydration; G89.4 Chronic pain syndrome; I10 Essential (primary) hypertension; K21.9 Gastro-esophageal reflux disease without esophagitis; L30.8 Other specified dermatitis; F12.90 Cannabis use, unspecified, uncomplicated; F41.9 Anxiety disorder, unspecified; Z88.5 Allergy status to narcotic agent; Z88.8 Allergy status to other drugs, medicaments and biological substances; Z91.018 Allergy to other foods; Z91.048 Other nonmedicinal substance allergy status; Z79.4 Long term (current) use of insulin; Z79.899 Other long term (current) drug therapy; Z80.3 Family history of malignant neoplasm of breast; Z82.49 Family history of ischemic heart disease and other diseases of the circulatory system; Z83.3 Family history of diabetes mellitus
CPT/HCPCS: 36415; 36600; 71045; 74022; 74174; 76937; 80048; 80053; 81001; 81025; 82803; 82810; 82948; 83036; 83690; 83735; 84100; 84484; 85018; 85025; 87070; 87324; 87449; 87493; 93005; G0378; J0696; J0780; J1170; J1815; J2270; J2405; J3490; J7030; Q9967

== ENCOUNTER 2018-11-26 11:09 | Emergency (ER) | payer MEDICARE, MEDICAID ==
[~2018-11-26] VITALS: Ht 167.6 cm; Wt 79.1 kg
[~2018-11-26 11:09] MED LIST changes: +ATI1T PO; -FAMO20TA44 PO; -GABA-532 PO; -HYDR-3965 PO; +INSU100V11; -INSU100V30 SQ; +LISI-600 PO; -LISI10TA4 PO; -LORA-269 PO; +OMEP-50 PO; -OMEP20CA10 PO; +ONDA4TAB12 PO; -ONDA4TAB9 SL; -PANT-47 PO
[2018-11-26 11:16] VITALS: BP 148/102
[2018-11-26] MEDS ORDERED: ketorolac tromethamine 15mg/ml inj. IM ONE (11:45)
[2018-11-26] MEDS ORDERED: proCHLORperazine 10 MG/2 ml inj IM ONE (11:45)
[2018-11-26] MEDS ORDERED: diphenhydrAMINE 25mg capsule PO ONE (11:45)
== END 2018-11-26 12:15 | disposition home or self-care (01) ==
LOC: ER 11:10
DX: S06.0X0A Concussion without loss of consciousness, initial encounter (principal); S00.03XA Contusion of scalp, initial encounter; M54.5 Low back pain; E78.00 Pure hypercholesterolemia, unspecified; I10 Essential (primary) hypertension; E11.9 Type 2 diabetes mellitus without complications; F12.90 Cannabis use, unspecified, uncomplicated; Z56.0 Unemployment, unspecified; Z98.890 Other specified postprocedural states; Z88.5 Allergy status to narcotic agent; Z88.8 Allergy status to other drugs, medicaments and biological substances; Z79.4 Long term (current) use of insulin; Z79.899 Other long term (current) drug therapy; W10.8XXA Fall (on) (from) other stairs and steps, initial encounter; Y93.89 Activity, other specified; Y92.218 Other school as the place of occurrence of the external cause; Y99.8 Other external cause status
CPT/HCPCS: 96372; 99284; J0780; J1885; Q0163

== ENCOUNTER 2018-12-30 10:18 | Emergency (ER) | payer MEDICARE, MEDICAID ==
[~2018-12-30] VITALS: Ht 167.6 cm; Wt 78.6 kg
[2018-12-30] MEDS ORDERED: insulin regular, human 10 units/0.1 ml syringe IV ONE (10:55)
[2018-12-30] MEDS ORDERED: normal saline 1000ML IV soln IVB ONE (10:55)
[2018-12-30 11:17] LABS: BASOPHILS % (AUTO) 0.2 % (0-1); EOSINOPHILS # (AUTO) 0.1 X10'3 (0-0.9); EOSINOPHILS % (AUTO) 1.4 % (0-6); HEMATOCRIT 35.6 % (35.0-45.0); LYMPHOCYTES # (AUTO) 1.7 X10'3 (1.1-4.8); LYMPHOCYTES % (AUTO) 22.2 % (21-51); MEAN CORPUSCULAR HGB CONC 33.7 g/dL (33.0-36.5); MEAN CORPUSCULAR VOLUME 89.2 FL (78-98); MEAN PLATELET VOLUME 8.4 FL (7.4-10.4); MONOCYTES # (AUTO) 0.4 X10'3 (0-0.9); MONOCYTES % (AUTO) 5.1 % (2-12); NEUTROPHILS # (AUTO) 5.6 X10'3 (1.8-7.7); NEUTROPHILS % (AUTO) 71.1 % (42-75); PLATELET COUNT 348 X10'3 (140-440); RED CELL DISTRIBUTION WIDTH 15.3 % (11.5-14.5); WHITE BLOOD COUNT 7.8 X10'3 (4.5-11.0)
[2018-12-30 11:19] LABS: URINE HCG NEGATIVE (NEG)
--- NOTE | 2018-12-30 11:22 | NUR ---
CALL TO PHARMACY AT THIS TIME TO RE STOCK INSULIN.
[2018-12-30 11:28] VITALS: BP 190/96
[2018-12-30 11:34] LABS: ALANINE AMINOTRANSFERASE 16 U/L (12-78); ALBUMIN 2.4 G/DL (3.4-5.0); ALBUMIN/GLOBULIN RATIO 0.6 (1.1-1.5); ALKALINE PHOSPHATASE 139 IU/L (46-116); ANION GAP 13 (8-16); ASPARTATE AMINO TRANSFERASE 10 U/L (10-37); BILIRUBIN,TOTAL 0.2 MG/DL (0.1-1.0); BLOOD UREA NITROGEN 26 MG/DL (7-18); CALCIUM 8.6 MG/DL (8.5-10.1); CHLORIDE 103 MMOL/L (99-107); CREATININE 0.84 MG/DL (0.40-0.90); POTASSIUM 4.5 MMOL/L (3.5-5.1); SODIUM 138 MMOL/L (135-145); TOTAL CARBON DIOXIDE 21.7 MMOL/L (24-32); TOTAL PROTEIN 6.5 G/DL (6.4-8.2); eGFR 80 ML/MIN
[2018-12-30 11:35] LABS: GLUCOSE 454 MG/DL (70-104)
[2018-12-30 11:40] LABS: D-DIMER < 0.19 MG/L FEU (0-0.50); INR 0.9 INR; PARTIAL THROMBOPLASTIN TIME 27 SECONDS (22-32); PROTHROMBIN TIME 9.2 SECONDS (9.0-12.0)
[2018-12-30] MEDS ORDERED: HYDROmorphone 2mg/ml vial IV ONE (11:40)
[2018-12-30 11:44] LABS: CLARITY,URINE CLOUDY (Clear); COLOR,URINE YELLOW (Yellow); GLUCOSE, URINE >=1000 mg/dl (Neg); KETONES,URINE 15 mg/dl (Neg); LEUKOCYTE ESTERASE ,URINE TRACE (Neg); NITRITES, URINE POSITIVE (Neg); OCCULT BLOOD,URINE LARGE (Neg); PROTEIN,URINE 30 mg/dl (Neg); UROBILINOGEN,URINE 0.2 E.U/dL (0.2-1.0)
[2018-12-30] MEDS ORDERED: HYDROmorphone 1 mg/ml syringe IV ONE (11:45)
[2018-12-30 11:46] LABS: UA COLLECTION TYPE CLN CATCH MIDSTREAM
[2018-12-30 12:05] LABS: BACTERIA,URINE 2+ /HPF (Neg)
[2018-12-30 12:06] LABS: MUCUS STRANDS FEW /LPF (Neg); SQUAMOUS EPITHELIAL CELL,UR FEW /LPF (FEW); WBC CLUMPS,URINE MODERATE /HPF (NEGATIVE)
[2018-12-30] MEDS ORDERED: CefTRIAXone/D5W-Rocephin 1gm 50 ML IV ONE (12:15)
[2018-12-30] MEDS ORDERED: CEPH500C5 PO (12:45)
[2018-12-30] MEDS ORDERED: ondansetron/PF 4mg/2ml inj IV ONE (12:50)
== END 2018-12-30 13:35 | disposition home or self-care (01) ==
LOC: ER 10:19
DX: R07.81 Pleurodynia (principal); N39.0 Urinary tract infection, site not specified; E78.00 Pure hypercholesterolemia, unspecified; I10 Essential (primary) hypertension; E11.9 Type 2 diabetes mellitus without complications; F12.90 Cannabis use, unspecified, uncomplicated; Z56.0 Unemployment, unspecified; Z88.5 Allergy status to narcotic agent; Z88.8 Allergy status to other drugs, medicaments and biological substances; Z79.899 Other long term (current) drug therapy; Z79.4 Long term (current) use of insulin
CPT/HCPCS: 36415; 71045; 80053; 81001; 81025; 82948; 84484; 85025; 85379; 85610; 85730; 87077; 87088; 87186; 93005; 96361; 96365; 96375; 99284; J0696; J1170; J1815; J2405; J7030

== ENCOUNTER 2019-03-25 07:05 | Emergency (ER) | payer MEDICARE, MEDICAID ==
[~2019-03-25] VITALS: Ht 157.5 cm; Wt 85.1 kg
[2019-03-25] MEDS ORDERED: normal saline 1000ML IV soln IVB ONE ×2 (07:45)
[2019-03-25] MEDS ORDERED: ondansetron/PF 4mg/2ml inj IV ONE (07:45)
[2019-03-25 07:51] LABS: CLARITY,URINE CLEAR (Clear); COLOR,URINE YELLOW (Yellow); GLUCOSE, URINE >=1000 mg/dl (Neg); KETONES,URINE TRACE mg/dl (Neg); LEUKOCYTE ESTERASE ,URINE NEGATIVE (Neg); NITRITES, URINE NEGATIVE (Neg); OCCULT BLOOD,URINE SMALL (Neg); PROTEIN,URINE 30 mg/dl (Neg); UROBILINOGEN,URINE 0.2 E.U/dL (0.2-1.0)
[2019-03-25 07:55] LABS: UA COLLECTION TYPE CLN CATCH MIDSTREAM
[2019-03-25 07:56] LABS: URINE HCG NEGATIVE (NEG)
[2019-03-25 07:57] LABS: BACTERIA,URINE 1+ /HPF (Neg); MUCUS STRANDS NONE SEEN /LPF (Neg); SQUAMOUS EPITHELIAL CELL,UR MANY /LPF (FEW); WBC,URINE 0-4 /HPF (0-4)
[2019-03-25 08:10] LABS: ABG BASE EXCESS -2.2 mmol/L (-2.0-3.0); ABG HCO3 21.1 mmol/L (22.0-26.0); ABG OXYGEN SATURATION 97.7 % (95-98); ABG PCO2 (T) 31.5 mmHg (32.0-45.0); ABG PH (T) 7.443 (7.350-7.450); ABG PO2 (T) 100.5 mmHg (83-108); ALLEN'S TEST Positive; FCOHb 0.8 % (0.5-1.5); FO2Hb 96.9 % (94-100); TOTAL HEMOGLOBIN 12.6 G/dl (12.0-16.0)
[2019-03-25 08:22] LABS: BASOPHILS # (AUTO) 0.1 X10'3 (0-0.2); BASOPHILS % (AUTO) 0.7 % (0-1); EOSINOPHILS # (AUTO) 0.1 X10'3 (0-0.9); EOSINOPHILS % (AUTO) 1.5 % (0-6); HEMATOCRIT 36.7 % (35.0-45.0); HEMOGLOBIN 12.2 g/dl (12.0-16.0); LYMPHOCYTES # (AUTO) 2.3 X10'3 (1.1-4.8); LYMPHOCYTES % (AUTO) 26.6 % (21-51); MEAN CORPUSCULAR HEMOGLOBIN 30.1 PG (27.0-31.0); MEAN CORPUSCULAR HGB CONC 33.1 g/dL (33.0-36.5); MEAN PLATELET VOLUME 8.6 FL (7.4-10.4); MONOCYTES # (AUTO) 0.6 X10'3 (0-0.9); MONOCYTES % (AUTO) 6.8 % (2-12); NEUTROPHILS # (AUTO) 5.4 X10'3 (1.8-7.7); NEUTROPHILS % (AUTO) 64.4 % (42-75); PLATELET COUNT 300 X10'3 (140-440); RED BLOOD COUNT 4.04 X10'6 (4.20-5.60); RED CELL DISTRIBUTION WIDTH 15.1 % (11.5-14.5); WHITE BLOOD COUNT 8.5 X10'3 (4.5-11.0)
[2019-03-25] MEDS ORDERED: ketorolac tromethamine 15mg/ml inj. IV ONE (09:10)
[2019-03-25 09:16] LABS: CHOLESTEROL 252 MG/DL (0-200); HDL CHOLESTEROL 50 MG/DL (35-60); LDL CHOLESTEROL 167 MG/DL (50-100); TRIGLYCERIDES 114 MG/DL (20-135)
[2019-03-25 09:21] LABS: ALANINE AMINOTRANSFERASE 39 U/L (12-78); ALBUMIN 2.2 G/DL (3.4-5.0); ALBUMIN/GLOBULIN RATIO 0.6 (1.1-1.5); ALKALINE PHOSPHATASE 132 IU/L (46-116); ANION GAP 8 (8-16); ASPARTATE AMINO TRANSFERASE 29 U/L (10-37); BILIRUBIN,TOTAL 0.1 MG/DL (0.1-1.0); BLOOD UREA NITROGEN 21 MG/DL (7-18); BUN/CREATININE RATIO 23.9 (6.6-38.0); CALCIUM 8.2 MG/DL (8.5-10.1); CHLORIDE 101 MMOL/L (99-107); CREATININE 0.88 MG/DL (0.40-0.90); LIPASE 99 U/L (73-393); POTASSIUM 4.9 MMOL/L (3.5-5.1); SODIUM 134 MMOL/L (135-145); TOTAL CARBON DIOXIDE 24.8 MMOL/L (24-32); eGFR 75 ML/MIN
[2019-03-25 09:22] LABS: GLUCOSE 496 MG/DL (70-104)
[2019-03-25] MEDS ORDERED: famotidine/PF 10 mg/ml inj IV ONE (10:15)
[2019-03-25] MEDS ORDERED: pantoprazole 40 MG vial IV ONE (10:15)
[2019-03-25] MEDS ORDERED: ONDA4TAB6 PO (11:11)
[2019-03-25 11:17] VITALS: BP 177/104
== END 2019-03-25 11:21 | disposition home or self-care (01) ==
LOC: ER 07:06
DX: K52.89 Other specified noninfective gastroenteritis and colitis (principal); E10.65 Type 1 diabetes mellitus with hyperglycemia; R10.13 Epigastric pain; E78.00 Pure hypercholesterolemia, unspecified; I10 Essential (primary) hypertension; F12.90 Cannabis use, unspecified, uncomplicated; Z56.0 Unemployment, unspecified; Z98.890 Other specified postprocedural states; Z88.5 Allergy status to narcotic agent; Z79.899 Other long term (current) drug therapy; Z79.4 Long term (current) use of insulin
CPT/HCPCS: 36415; 36600; 80053; 80061; 81001; 81025; 82803; 82948; 83690; 85018; 85025; 96361; 96374; 96375; 99284; C9113; J1885; J2405; J7030

== ENCOUNTER 2019-08-10 13:40 | Emergency (ER) | payer MEDICARE, MEDICAID ==
[~2019-08-10] VITALS: Ht 165.1 cm; Wt 80.8 kg
[~2019-08-10 13:40] MED LIST changes: +ONDA4TAB6 PO
[2019-08-10 14:29] LABS: URINE HCG NEGATIVE (NEG)
[2019-08-10 14:29] LABS: BASOPHILS # (AUTO) 0.1 X10'3 (0-0.2); BASOPHILS % (AUTO) 0.4 % (0-1); EOSINOPHILS # (AUTO) 0.1 X10'3 (0-0.9); EOSINOPHILS % (AUTO) 0.6 % (0-6); HEMOGLOBIN 13.6 g/dl (12.0-16.0); LYMPHOCYTES # (AUTO) 3.4 X10'3 (1.1-4.8); LYMPHOCYTES % (AUTO) 24.1 % (21-51); MEAN CORPUSCULAR HEMOGLOBIN 29.7 PG (27.0-31.0); MEAN CORPUSCULAR HGB CONC 32.5 g/dL (33.0-36.5); MEAN CORPUSCULAR VOLUME 91.4 FL (78-98); MEAN PLATELET VOLUME 7.7 FL (7.4-10.4); MONOCYTES # (AUTO) 0.6 X10'3 (0-0.9); MONOCYTES % (AUTO) 4.5 % (2-12); NEUTROPHILS # (AUTO) 9.9 X10'3 (1.8-7.7); NEUTROPHILS % (AUTO) 70.4 % (42-75); PLATELET COUNT 451 X10'3 (140-440); RED CELL DISTRIBUTION WIDTH 15.8 % (11.5-14.5)
[2019-08-10] MEDS ORDERED: normal saline 1000ML IV soln IVB ONE (14:30)
[2019-08-10 14:31] LABS: CLARITY,URINE CLEAR (Clear); COLOR,URINE STRAW (Yellow); GLUCOSE, URINE >=1000 mg/dl (Neg); KETONES,URINE 40 mg/dl (Neg); LEUKOCYTE ESTERASE ,URINE NEGATIVE (Neg); NITRITES, URINE NEGATIVE (Neg); OCCULT BLOOD,URINE MODERATE (Neg); PH,URINE 5.5 (4.8-8.0); PROTEIN,URINE 100 mg/dl (Neg); UROBILINOGEN,URINE 0.2 E.U/dL (0.2-1.0)
[2019-08-10 14:34] LABS: UA COLLECTION TYPE CLN CATCH MIDSTREAM
[2019-08-10 14:36] LABS: WBC,URINE 0-4 /HPF (0-4)
[2019-08-10 14:37] LABS: BACTERIA,URINE 1+ /HPF (Neg); MUCUS STRANDS FEW /LPF (Neg); RBC,URINE 20-50 /HPF (0-2); SQUAMOUS EPITHELIAL CELL,UR MANY /LPF (FEW)
[2019-08-10 14:42] LABS: ALANINE AMINOTRANSFERASE 23 U/L (12-78); ALBUMIN/GLOBULIN RATIO 0.6 (1.1-1.5); ALKALINE PHOSPHATASE 155 IU/L (46-116); AMYLASE 92 U/L (25-115); ANION GAP 16 (8-16); ASPARTATE AMINO TRANSFERASE 14 U/L (10-37); BILIRUBIN,TOTAL 0.2 MG/DL (0.1-1.0); BLOOD UREA NITROGEN 21 MG/DL (7-18); BUN/CREATININE RATIO 16.3 (6.6-38.0); CALCIUM 9.4 MG/DL (8.5-10.1); CHLORIDE 101 MMOL/L (99-107); CREATININE 1.29 MG/DL (0.40-0.90); GLUCOSE 197 MG/DL (70-104); LIPASE 343 U/L (73-393); SODIUM 138 MMOL/L (135-145); TOTAL CARBON DIOXIDE 20.8 MMOL/L (24-32); TOTAL PROTEIN 7.9 G/DL (6.4-8.2); eGFR 48 ML/MIN
[2019-08-10] MEDS ORDERED: LIDOcaine Viscous 15ml cup PO ONE (14:45)
[2019-08-10] MEDS ORDERED: mag hydrox/Alum hydrox/simeth 30ml oral suspension PO ONE (14:45)
[2019-08-10] MEDS ORDERED: famotidine 20mg tablet PO ONE (14:45)
[2019-08-10] MEDS ORDERED: fentaNYL/PF 50MCG/1 ML 2ML syringe IV ONE (15:40)
[2019-08-10 16:43] VITALS: BP 130/87
== END 2019-08-10 16:45 | disposition home or self-care (01) ==
LOC: ER 13:41
DX: E11.65 Type 2 diabetes mellitus with hyperglycemia (principal); R10.13 Epigastric pain; E86.0 Dehydration; E78.00 Pure hypercholesterolemia, unspecified; I10 Essential (primary) hypertension; F41.9 Anxiety disorder, unspecified; F31.9 Bipolar disorder, unspecified; F20.9 Schizophrenia, unspecified; F12.90 Cannabis use, unspecified, uncomplicated; Z98.890 Other specified postprocedural states; Z56.0 Unemployment, unspecified; Z88.5 Allergy status to narcotic agent; Z88.8 Allergy status to other drugs, medicaments and biological substances; Z79.4 Long term (current) use of insulin; Z79.899 Other long term (current) drug therapy
CPT/HCPCS: 36415; 80053; 81001; 81025; 82150; 82948; 83690; 85025; 85610; 96361; 96374; 99283; J3010; J7030; 99284

== ENCOUNTER 2020-04-22 11:15 | Inpatient (IN) | payer MEDICARE, MEDICAID ==
[~2020-04-22] VITALS: Ht 170.2 cm; Wt 82.0 kg
[2020-04-22] MEDS ORDERED: normal saline 1000ML IV soln IVB ONE (11:25)
[2020-04-22] MEDS ORDERED: proCHLORperazine 10 MG/2 ml inj IV ONE (11:40)
--- NOTE | 2020-04-22 11:47 | NUR ---
PT HAS IMPLANTED INSULIN PUMP RUNNING AT 1U/HR. ADVISED AND STATED TO LEAVE IT RUNNING AT THIS TIME.
[2020-04-22 11:58] LABS: BASOPHILS % (AUTO) 0.3 % (0-1); EOSINOPHILS # (AUTO) 0.1 X10'3 (0-0.9); EOSINOPHILS % (AUTO) 0.5 % (0-6); HEMATOCRIT 41.8 % (35.0-45.0); HEMOGLOBIN 13.1 g/dl (12.0-16.0); LYMPHOCYTES # (AUTO) 2.3 X10'3 (1.1-4.8); LYMPHOCYTES % (AUTO) 16.2 % (21-51); MEAN CORPUSCULAR HEMOGLOBIN 28.2 PG (27.0-31.0); MEAN CORPUSCULAR HGB CONC 31.4 g/dL (33.0-36.5); MEAN CORPUSCULAR VOLUME 89.6 FL (78-98); MEAN PLATELET VOLUME 9.2 FL (7.4-10.4); MONOCYTES # (AUTO) 0.5 X10'3 (0-0.9); MONOCYTES % (AUTO) 3.7 % (2-12); NEUTROPHILS # (AUTO) 11.4 X10'3 (1.8-7.7); NEUTROPHILS % (AUTO) 79.3 % (42-75); PLATELET COUNT 311 X10'3 (140-440); RED BLOOD COUNT 4.67 X10'6 (4.20-5.60); RED CELL DISTRIBUTION WIDTH 14.6 % (11.5-14.5); WHITE BLOOD COUNT 14.3 X10'3 (4.5-11.0)
[2020-04-22] MEDS ORDERED: fentaNYL/PF 50MCG/1 ML 2ML syringe IV ONE ×2 (12:10→15:15)
[2020-04-22 12:19] LABS: ALANINE AMINOTRANSFERASE 16 U/L (12-78); ALBUMIN 2.8 G/DL (3.4-5.0); ALBUMIN/GLOBULIN RATIO 0.8 (1.1-1.5); ALKALINE PHOSPHATASE 120 IU/L (46-116); ANION GAP 23 (8-16); ASPARTATE AMINO TRANSFERASE 12 U/L (10-37); BILIRUBIN,TOTAL 0.4 MG/DL (0.1-1.0); BLOOD UREA NITROGEN 40 MG/DL (7-18); BUN/CREATININE RATIO 26.5 (6.6-38.0); CALCIUM 8.7 MG/DL (8.5-10.1); CHLORIDE 98 MMOL/L (99-107); CREATININE 1.51 MG/DL (0.40-0.90); LIPASE 57 U/L (73-393); MAGNESIUM 1.8 MG/DL (1.5-2.4); PHOSPHORUS 5.4 MG/DL (2.3-4.5); POTASSIUM 4.6 MMOL/L (3.5-5.1); SODIUM 132 MMOL/L (135-145); TOTAL PROTEIN 6.4 G/DL (6.4-8.2); eGFR 40 ML/MIN
[2020-04-22 12:21] LABS: GLUCOSE 686 MG/DL (70-104); TOTAL CARBON DIOXIDE 11.1 MMOL/L (24-32)
[2020-04-22 12:24] LABS: CLARITY,URINE SLIGHTLY CLOUDY (Clear); COLOR,URINE STRAW (Yellow); GLUCOSE, URINE >=1000 mg/dl (Neg); KETONES,URINE >=80 mg/dl (Neg); LEUKOCYTE ESTERASE ,URINE NEGATIVE (Neg); NITRITES, URINE NEGATIVE (Neg); OCCULT BLOOD,URINE MODERATE (Neg); PH,URINE 5.5 (4.8-8.0); PROTEIN,URINE 100 mg/dl (Neg); UROBILINOGEN,URINE 0.2 E.U/dL (0.2-1.0)
[2020-04-22] MEDS ORDERED: potassium CL 20mEq in D5-1/2NS 1,000 ML IV PRN (12:27)
[2020-04-22 12:29] LABS: UA COLLECTION TYPE CLN CATCH MIDSTREAM
[2020-04-22] MEDS ORDERED: insulin regular, human U-100 3ml vial - multi-dose IV PRN ×2 (12:30→13:35)
[2020-04-22] MEDS ORDERED: potassium Cl 20 mEq SR tablet PO PRN ×6 (12:30→13:35)
[2020-04-22] MEDS ORDERED: potassium CL 10mEq/100ml bag 100 ML IV PRN ×6 (12:30→13:35)
[2020-04-22 12:31] LABS: BACTERIA,URINE 1+ /HPF (Neg); COARSE GRANULAR CAST 0-3 /LPF (NEGATIVE); SQUAMOUS EPITHELIAL CELL,UR MODERATE /LPF (FEW); WBC,URINE 0-4 /HPF (0-4)
[2020-04-22 12:51] LABS: ABG BASE EXCESS -18.7 mmol/L (-2.0-3.0); ABG HCO3 7.9 mmol/L (22.0-26.0); ABG OXYGEN SATURATION 96.2 % (95-98); ABG PCO2 (T) 21.9 mmHg (35.0-45.0); ABG PO2 (T) 102.4 mmHg (83-108); ALLEN'S TEST POSITIVE; FCOHb 0.6 % (0.5-1.5); FMetHb 0.2 % (0.3-1.12); FO2Hb 95.4 % (94-100); TOTAL HEMOGLOBIN 13.3 G/dl (12.0-16.0)
[2020-04-22] MEDS: Insulin Reg/NS 100units/100mL 100 ML IV SCH (13:29)
[2020-04-22] MEDS ORDERED: Insulin Reg/NS 100units/100mL 100 ML IV SCH (13:35)
[2020-04-22] MEDS ORDERED: mag hydrox/Alum hydrox/simeth 30ml oral suspension PO PRN (13:35)
[2020-04-22] MEDS ORDERED: sodium phosphate inj. 30 MMOL in dextrose 5%-water 250 ML IV PRN (13:35)
[2020-04-22] MEDS ORDERED: sodium bicarbonate (8.4%) inj. 50 MEQ in dextrose 5% water 500ml 250 ML IV PRN (13:35)
[2020-04-22] MEDS ORDERED: magnesium Cl slow-release 64mg tablet PO PRN (13:35)
[2020-04-22] MEDS: normal saline 1000ml 1,000 ML IV SCH ×5 (13:35→20:10)
[2020-04-22] MEDS ORDERED: magnesium 4gm in 100ml NS 100 ML IV PRN (13:35)
[2020-04-22] MEDS ORDERED: acetaminophen 325mg tablet PO PRN ×2 (13:35)
[2020-04-22] MEDS ORDERED: diphenhydrAMINE 25mg capsule PO PRN (13:35)
[2020-04-22] MEDS ORDERED: magnesium hydroxide 30ml (MOM) UD suspension PO PRN (13:35)
[2020-04-22] MEDS ORDERED: sodium phosphate inj. 15 MMOL in dextrose 5%-water 250 ML IV PRN (13:35)
[2020-04-22] MEDS ORDERED: sodium bicarbonate (8.4%) inj. 100 MEQ in dextrose 5% water 500ml 500 ML IV PRN (13:35)
[2020-04-22] MEDS ORDERED: bisacodyl 10mg suppository rectal RC PRN (13:35)
[2020-04-22] MEDS ORDERED: acetaminophen 650mg rectal suppository RC PRN (13:35)
[2020-04-22] MEDS ORDERED: magnesium 2GM in 50ml NS 50 ML IV PRN (13:35)
[2020-04-22] MEDS ORDERED: Neutra Phos packet PO PRN (13:35)
[2020-04-22] MEDS ORDERED: QUET25TA34 PO (13:40)
[2020-04-22] MEDS ORDERED: CHOL500049 PO (13:40)
[2020-04-22] MEDS ORDERED: LISI2.5T2 PO (13:40)
[2020-04-22] MEDS ORDERED: LOVA20TA2 PO (13:40)
[2020-04-22] MEDS ORDERED: LORA2TAB96 PO (13:40)
[2020-04-22] MEDS ORDERED: BREX2TAB PO (13:40)
[2020-04-22] MEDS ORDERED: OMEP-50 PO (13:40)
[2020-04-22] MEDS ORDERED: INSU100V13 SQ (13:40)
[2020-04-22] MEDS ORDERED: PENT400T17 PO (13:40)
[2020-04-22] MEDS ORDERED: ESCI20TA45 PO (13:40)
[2020-04-22] MEDS ORDERED: QUEtiapine 25mg tablet PO PRN (13:45)
--- NOTE | 2020-04-22 13:53 | NUR ---
PER Cynthia PORTILLO, WHEN INSULIN PUMP STARTED, PTS IMPLANTED PUMP D/C AND CO STOPPED WITH ANGELIQUE MORENO
[2020-04-22 14:25] LABS: HEMOGLOBIN A1C 11.5 % (4.5-6.2)
[2020-04-22] MEDS: LORazepam 1 MG tablet PO PRN (14:26)
--- NOTE | 2020-04-22 14:39 | NUR ---
DR. TRIPATHI PAGED FOR HIGH LA AND VS.
[2020-04-22 15:23] LABS: PARTIAL THROMBOPLASTIN TIME 27 SECONDS (22-32)
[2020-04-22 16:17] LABS: URINE HCG NEGATIVE (NEG)
[2020-04-22 16:24] LABS: URINE AMPHETAMINE SCREEN NEGATIVE (Neg); URINE BARBITUATE SCREEN NEGATIVE (Neg); URINE BENZODIAZEPINES SCREEN NEGATIVE (Neg); URINE CANNABINOID SCREEN POSITIVE (Neg); URINE COCAINE SCREEN NEGATIVE (Neg); URINE METHADONE SCREEN NEGATIVE (Neg); URINE OPIATE SCREEN NEGATIVE (Neg); URINE PHENCYCLIDINE SCREEN NEGATIVE (Neg)
[2020-04-22] MEDS ORDERED: LORazepam 2 mg/ml vial IV ONE (16:35)
[2020-04-22 16:36] LABS: ABG BASE EXCESS -16.9 mmol/L (-2.0-3.0); ABG HCO3 8.8 mmol/L (22.0-26.0); ABG OXYGEN SATURATION 96.3 % (95-98); ABG PCO2 (T) 21.9 mmHg (35.0-45.0); ABG PO2 (T) 97.3 mmHg (83-108); ALLEN'S TEST POSITIVE; FCOHb 0.4 % (0.5-1.5); FMetHb 0.1 % (0.3-1.12); FO2Hb 95.8 % (94-100); TOTAL HEMOGLOBIN 13.4 G/dl (12.0-16.0)
--- NOTE | 2020-04-22 16:39 | NUR ---
Dr. Malone at bedside.
--- NOTE | 2020-04-22 17:10 | NUR ---
Received report from Gretchen MERINO on Pt. Had the oppurtunity to ask questions concerning Pt's care. Awaiting Pt's arrival.
[2020-04-22 17:14] LABS: ALBUMIN 2.8 G/DL (3.4-5.0); ANION GAP 24 (8-16); BLOOD UREA NITROGEN 39 MG/DL (7-18); BUN/CREATININE RATIO 23.9 (6.6-38.0); CALCIUM 8.6 MG/DL (8.5-10.1); CHLORIDE 103 MMOL/L (99-107); CREATININE 1.63 MG/DL (0.40-0.90); PHOSPHORUS 5.4 MG/DL (2.3-4.5); POTASSIUM 4.9 MMOL/L (3.5-5.1); SODIUM 139 MMOL/L (135-145); eGFR 37 ML/MIN
[2020-04-22] MEDS ORDERED: labetalol 20mg/4ml (5mg/ml) syringe IV ONE (17:15)
[2020-04-22 17:24] LABS: GLUCOSE 480 MG/DL (70-104); TOTAL CARBON DIOXIDE 12.4 MMOL/L (24-32)
--- NOTE | 2020-04-22 17:57 | NUR ---
PAGER ID: [phone] MESSAGE: Re: Jaquelin Larsen, Room: 3021. Pt's current BP 144/78. Do you still want to give Labetolol 10mg IV? -Declan [facility][id number] Dr. Malone paged concerning Pt's BP and labetolol order.
[2020-04-22 18:00] VITALS: BP 157/88
--- NOTE | 2020-04-22 18:00 | NUR ---
Problems reprioritized. Patient report given, questions answered & plan of care reviewed with Nayana MERINO.
[2020-04-22] MEDS: pantoprazole 40 MG vial IV SCH ×2 (18:32→20:00)
[2020-04-22] MEDS: HYDROmorphone inj. 0.5 MG/0.5 ML DISP.SYRIN IV PRN (18:34)
--- NOTE | 2020-04-22 18:58 | NUR ---
Patient in room PCU 3021. I have received report from Declan MERINO and had the opportunity to ask questions and assume patient care.
[2020-04-22] MEDS: propranolol 10mg tablet PO SCH (19:52)
[2020-04-22] MEDS ORDERED: K and/or MAG REPLACEMENT MC SCH ×2 (20:00)
[2020-04-22] MEDS: K and/or MAG REPLACEMENT MC SCH (20:00)
[2020-04-22] MEDS: metroNIDAZOLE-Flagyl 500mg/NS 100 ML IV SCH (20:29)
[2020-04-22] MEDS: atorvastatin 10mg tablet PO SCH (21:38)
[2020-04-22] MEDS: heparin, porcine 5000 units/ml vial SQ SCH (21:39)
[2020-04-22] MEDS: CefTRIAXone/D5W-Rocephin 1gm 50 ML IV SCH (21:40)
[2020-04-22 21:42] LABS: ALBUMIN 2.3 G/DL (3.4-5.0); ANION GAP 15 (8-16); BLOOD UREA NITROGEN 38 MG/DL (7-18); BUN/CREATININE RATIO 24.1 (6.6-38.0); CALCIUM 8.3 MG/DL (8.5-10.1); CHLORIDE 108 MMOL/L (99-107); CREATININE 1.58 MG/DL (0.40-0.90); GLUCOSE 354 MG/DL (70-104); PHOSPHORUS 2.9 MG/DL (2.3-4.5); POTASSIUM 4.4 MMOL/L (3.5-5.1); SODIUM 137 MMOL/L (135-145); eGFR 38 ML/MIN
[2020-04-22 21:45] LABS: TOTAL CARBON DIOXIDE 13.9 MMOL/L (24-32)
[2020-04-22 22:00] VITALS: BP 143/72
[2020-04-22] MEDS: potassium CL 20mEq in D5-1/2NS 1,000 ML IV PRN (22:18)
[2020-04-23] MEDS: metroNIDAZOLE-Flagyl 500mg/NS 100 ML IV SCH ×3 (01:10→15:09)
[2020-04-23] MEDS: HYDROmorphone inj. 0.5 MG/0.5 ML DISP.SYRIN IV PRN ×5 (01:11→19:30)
[2020-04-23] MEDS: ondansetron/PF 4mg/2ml inj IV PRN ×2 (01:12→18:21)
[2020-04-23] MEDS: normal saline 1000ml 1,000 ML IV SCH ×6 (01:35→23:20)
--- NOTE | 2020-04-23 01:50 | NUR ---
Dr. Watkins notified of current BS result of 90 and IV infusion rate of 250mls/HR of D5 1/2NS w/20mEqKCL. All current lab information also given to . This nurse instructed to decrease Insulin drip to 3U/HR, completed.
[2020-04-23 01:54] LABS: ALANINE AMINOTRANSFERASE 10 U/L (12-78); ALBUMIN 2.3 G/DL (3.4-5.0); ALBUMIN/GLOBULIN RATIO 0.7 (1.1-1.5); ALKALINE PHOSPHATASE 82 IU/L (46-116); ANION GAP 10 (8-16); ASPARTATE AMINO TRANSFERASE 11 U/L (10-37); BILIRUBIN,TOTAL 0.2 MG/DL (0.1-1.0); BLOOD UREA NITROGEN 34 MG/DL (7-18); BUN/CREATININE RATIO 25.6 (6.6-38.0); CHLORIDE 111 MMOL/L (99-107); CHOLESTEROL 208 MG/DL (0-200); CREATININE 1.33 MG/DL (0.40-0.90); GLUCOSE 138 MG/DL (70-104); HDL CHOLESTEROL 52 MG/DL (35-60); LDL CHOLESTEROL 129 MG/DL (50-100); MAGNESIUM 1.6 MG/DL (1.5-2.4); PHOSPHORUS 2.6 MG/DL (2.3-4.5); POTASSIUM 3.6 MMOL/L (3.5-5.1); SODIUM 142 MMOL/L (135-145); TOTAL CARBON DIOXIDE 21.5 MMOL/L (24-32); TOTAL PROTEIN 5.7 G/DL (6.4-8.2); TRIGLYCERIDES 92 MG/DL (20-135); eGFR 47 ML/MIN
[2020-04-23 02:00] VITALS: BP 136/71
--- NOTE | 2020-04-23 05:00 | NUR ---
Dr. Watkins notified of BS at 79. Instructed to hold Insulin drip, completed.
[2020-04-23] MEDS: potassium CL 20mEq in D5-1/2NS 1,000 ML IV PRN ×2 (05:04→09:46)
[2020-04-23 05:26] LABS: ABG BASE EXCESS -7.8 mmol/L (-2.0-3.0); ABG HCO3 16.5 mmol/L (22.0-26.0); ABG OXYGEN SATURATION 96.6 % (95-98); ABG PCO2 (T) 30.1 mmHg (35.0-45.0); ABG PO2 (T) 91.2 mmHg (83-108); ALLEN'S TEST POSITIVE; FCOHb 0.3 % (0.5-1.5); FO2Hb 96.3 % (94-100); PATIENT TEMPERATURE 37.1; TOTAL HEMOGLOBIN 12.1 G/dl (12.0-16.0)
[2020-04-23 06:00] VITALS: BP 133/77
[2020-04-23 06:27] LABS: BASOPHILS # (AUTO) 0.1 X10'3 (0-0.2); BASOPHILS % (AUTO) 0.4 % (0-1); EOSINOPHILS % (AUTO) 0.4 % (0-6); HEMATOCRIT 37.6 % (35.0-45.0); HEMOGLOBIN 12.2 g/dl (12.0-16.0); LYMPHOCYTES # (AUTO) 3.1 X10'3 (1.1-4.8); LYMPHOCYTES % (AUTO) 25.5 % (21-51); MEAN CORPUSCULAR HEMOGLOBIN 28.2 PG (27.0-31.0); MEAN CORPUSCULAR HGB CONC 32.5 g/dL (33.0-36.5); MEAN CORPUSCULAR VOLUME 86.8 FL (78-98); MONOCYTES # (AUTO) 0.8 X10'3 (0-0.9); MONOCYTES % (AUTO) 6.5 % (2-12); NEUTROPHILS # (AUTO) 8.1 X10'3 (1.8-7.7); NEUTROPHILS % (AUTO) 67.2 % (42-75); PLATELET COUNT 290 X10'3 (140-440); RED BLOOD COUNT 4.33 X10'6 (4.20-5.60); RED CELL DISTRIBUTION WIDTH 14.3 % (11.5-14.5); WHITE BLOOD COUNT 12.1 X10'3 (4.5-11.0)
--- NOTE | 2020-04-23 07:07 | NUR ---
Problems reprioritized. Patient report given, questions answered & plan of care reviewed with Declan MERINO.
[2020-04-23 07:33] LABS: ALBUMIN 2.4 G/DL (3.4-5.0); ANION GAP 13 (8-16); BLOOD UREA NITROGEN 30 MG/DL (7-18); BUN/CREATININE RATIO 27.5 (6.6-38.0); CALCIUM 7.8 MG/DL (8.5-10.1); CHLORIDE 110 MMOL/L (99-107); CREATININE 1.09 MG/DL (0.40-0.90); GLUCOSE 84 MG/DL (70-104); SODIUM 143 MMOL/L (135-145); TOTAL CARBON DIOXIDE 19.9 MMOL/L (24-32); eGFR 59 ML/MIN
[2020-04-23] MEDS ORDERED: lisinopril 2.5mg tablet PO SCH (08:00)
[2020-04-23] MEDS: K and/or MAG REPLACEMENT MC SCH ×2 (08:00→20:00)
[2020-04-23] MEDS: propranolol 10mg tablet PO SCH ×2 (08:05→19:29)
[2020-04-23] MEDS: ESCITALOPRAM OXALATE 5 MG TABLET PO SCH (08:06)
[2020-04-23] MEDS: heparin, porcine 5000 units/ml vial SQ SCH ×2 (08:07→19:29)
[2020-04-23] MEDS: pantoprazole 40 MG vial IV SCH ×2 (08:08→19:28)
[2020-04-23] MEDS: Insulin Reg/NS 100units/100mL 100 ML IV SCH ×2 (08:25→23:50)
[2020-04-23] MEDS ORDERED: Insulin Reg/NS 100units/100mL 100 ML IV SCH (09:13)
[2020-04-23] MEDS ORDERED: MESSAGE TO PHARMACY PO ONE (09:15)
[2020-04-23] MEDS ORDERED: dextrose ORAL solution 15 GM/59 ML bottle PO PRN ×2 (09:15)
[2020-04-23] MEDS ORDERED: glucagon, human recombinant 1mg kit SUBCUT PRN (09:15)
[2020-04-23] MEDS ORDERED: dextrose 50%-water 50ml dispensing syringe IV PRN ×2 (09:15)
[2020-04-23] MEDS: LORazepam 2 mg/ml vial IV PRN ×2 (09:45→21:17)
[2020-04-23] MEDS: CefTRIAXone/D5W-Rocephin 1gm 50 ML IV SCH (09:46)
[2020-04-23 10:15] LABS: ALBUMIN 2.2 G/DL (3.4-5.0); ANION GAP 12 (8-16); BLOOD UREA NITROGEN 22 MG/DL (7-18); BUN/CREATININE RATIO 20.2 (6.6-38.0); CALCIUM 7.5 MG/DL (8.5-10.1); CHLORIDE 109 MMOL/L (99-107); CREATININE 1.09 MG/DL (0.40-0.90); GLUCOSE 264 MG/DL (70-104); POTASSIUM 4.1 MMOL/L (3.5-5.1); SODIUM 138 MMOL/L (135-145); TOTAL CARBON DIOXIDE 16.7 MMOL/L (24-32); eGFR 59 ML/MIN
[2020-04-23 10:30] VITALS: BP 180/90
[2020-04-23] MEDS: hydrALAZINE 20mg/ml inj. IV PRN ×2 (10:38→19:29)
--- NOTE | 2020-04-23 10:45 | NUR ---
Pt BP 180/90. Hydralazine 10mg IV PRN administered.
[2020-04-23] MEDS: lisinopril 20mg tablet PO SCH (12:48)
[2020-04-23] MEDS: insulin Lispro (HumaLOG) vial - multi-dose SQ SCH ×3 (13:54→21:29)
[2020-04-23] MEDS: insulin glargine (Lantus) pen - multi-dose SQ SCH ×2 (13:56→21:23)
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
[2020-04-23 15:00] VITALS: BP 165/88
--- NOTE | 2020-04-23 15:10 | NUR ---
Pt's insulin gtt and D5 1/2NS with 20meq K turned off. Will continue to monitor Pt's blood sugar hourly.
[2020-04-23] MEDS: atorvastatin 10mg tablet PO SCH (16:50)
[2020-04-23 17:28] LABS: ALBUMIN 2.3 G/DL (3.4-5.0); ANION GAP 10 (8-16); BLOOD UREA NITROGEN 15 MG/DL (7-18); BUN/CREATININE RATIO 18.1 (6.6-38.0); CALCIUM 7.7 MG/DL (8.5-10.1); CHLORIDE 109 MMOL/L (99-107); CREATININE 0.83 MG/DL (0.40-0.90); GLUCOSE 214 MG/DL (70-104); MAGNESIUM 1.7 MG/DL (1.5-2.4); SODIUM 139 MMOL/L (135-145); TOTAL CARBON DIOXIDE 19.8 MMOL/L (24-32); eGFR 80 ML/MIN
--- NOTE | 2020-04-23 18:00 | NUR ---
Student documentation: I have reviewed and agree with all interventions, assessments performed and documented by Kandis Student Nurse.
--- NOTE | 2020-04-23 18:05 | NUR ---
Problems reprioritized. Patient report given, questions answered & plan of care reviewed with Alf RN.
--- NOTE | 2020-04-23 18:20 | NUR ---
Patient in room PCU 3021. I have received report from Jaren MERINO and had the opportunity to ask questions and assume patient care.
[2020-04-23 19:00] VITALS: BP 181/97
[2020-04-23 23:00] VITALS: BP 145/74
[2020-04-23 23:32] LABS: ALANINE AMINOTRANSFERASE 17 U/L (12-78); ALBUMIN 2.5 G/DL (3.4-5.0); ALBUMIN/GLOBULIN RATIO 0.7 (1.1-1.5); ALKALINE PHOSPHATASE 82 IU/L (46-116); ANION GAP 16 (8-16); ASPARTATE AMINO TRANSFERASE 17 U/L (10-37); BILIRUBIN,TOTAL 0.3 MG/DL (0.1-1.0); BLOOD UREA NITROGEN 13 MG/DL (7-18); BUN/CREATININE RATIO 12.9 (6.6-38.0); CALCIUM 7.8 MG/DL (8.5-10.1); CHLORIDE 107 MMOL/L (99-107); CREATININE 1.01 MG/DL (0.40-0.90); GLUCOSE 303 MG/DL (70-104); PHOSPHORUS 2.4 MG/DL (2.3-4.5); POTASSIUM 4.3 MMOL/L (3.5-5.1); SODIUM 139 MMOL/L (135-145); TOTAL PROTEIN 5.9 G/DL (6.4-8.2); eGFR 64 ML/MIN
--- NOTE | 2020-04-23 23:43 | NUR ---
Page Sent to Dr Middleton concerning Anion gap and CO2 trends promotional table spacer PAGER ID: [phone] MESSAGE: Sweetie5 - Chava Jaquelin - DKA - protocol was discontinued with patient Gap boderline closed. Pt ketoacidosis returning. Will restart dka protocol. New labs show CO2 is 16 down from 19.8 and gap is 16 from 10. BSG 258. [phone] Alf MERINO
[2020-04-23] MEDS ORDERED: sodium bicarbonate (8.4%) inj. 50 MEQ in dextrose 5% water 500ml 250 ML IV PRN (23:50)
[2020-04-23] MEDS ORDERED: sodium bicarbonate (8.4%) inj. 100 MEQ in dextrose 5% water 500ml 500 ML IV PRN (23:50)
[2020-04-24] VITALS (9 sets, daily range): BP systolic 119–194; BP diastolic 59–105
[2020-04-24] MEDS: metroNIDAZOLE-Flagyl 500mg/NS 100 ML IV SCH ×3 (00:06→16:16)
[2020-04-24] MEDS: HYDROmorphone inj. 0.5 MG/0.5 ML DISP.SYRIN IV PRN ×5 (00:07→20:31)
[2020-04-24] MEDS: potassium CL 20mEq in D5-1/2NS 1,000 ML IV PRN ×2 (03:34→08:08)
--- NOTE | 2020-04-24 05:11 | NUR ---
Pt Blood sugar at 59 for 0500 check - patient asymptomatic, alert and surprised by blood sugar. Patient requested apple juice instead of dextrose shot. Provided her two and she immediately drank them. Increased d5 1/2 to max titratable dose per protocol of 250 ml / hr. Will recheck blood sugar in 15 mins.
[2020-04-24] MEDS: ondansetron/PF 4mg/2ml inj IV PRN ×2 (05:17→12:23)
--- NOTE | 2020-04-24 05:31 | NUR ---
Sweetie1 - Jaquelin Larsen - SLOANEA - Patient BSG at 0500 was 59 just titrated rate of D51/2 to 250ml/hr and had patient drink 2 OJ's. Pt BSG now at 100. Requesting to turn down insulin to 3 units/hr. [phone] Alf MERINO Addendum: 04/24/20 at 0532 by Manny Cruz RN Dr. Middleton returned page and agreed for me to titrate insulin to 3 units/hr. Will turn down rate and continue to monitor. Addendum: 04/24/20 at 0559 by Manny Cruz RN PT BSG @ 146 after 2 additional (4 total orange juices), D5 1/2 NS to 250ml/hr, and insulin rate change to 3units / hr. Patient said they will attempt to eat eggs this morning and meal request faxed to dietary. Labs drawn and pending. Will pass this on to next RN.
--- NOTE | 2020-04-24 06:00 | NUR ---
Patient in room PCU 3021. I have received report from Alf and had the opportunity to ask questions and assume patient care.
[2020-04-24 06:12] LABS: BASOPHILS # (AUTO) 0.1 X10'3 (0-0.2); BASOPHILS % (AUTO) 0.8 % (0-1); EOSINOPHILS # (AUTO) 0.1 X10'3 (0-0.9); EOSINOPHILS % (AUTO) 0.7 % (0-6); HEMATOCRIT 37.6 % (35.0-45.0); HEMOGLOBIN 12.1 g/dl (12.0-16.0); LYMPHOCYTES # (AUTO) 3.7 X10'3 (1.1-4.8); LYMPHOCYTES % (AUTO) 34.7 % (21-51); MEAN CORPUSCULAR HEMOGLOBIN 28.1 PG (27.0-31.0); MEAN CORPUSCULAR HGB CONC 32.2 g/dL (33.0-36.5); MEAN CORPUSCULAR VOLUME 87.2 FL (78-98); MEAN PLATELET VOLUME 8.7 FL (7.4-10.4); MONOCYTES # (AUTO) 0.9 X10'3 (0-0.9); MONOCYTES % (AUTO) 8.7 % (2-12); NEUTROPHILS # (AUTO) 5.9 X10'3 (1.8-7.7); NEUTROPHILS % (AUTO) 55.1 % (42-75); PLATELET COUNT 284 X10'3 (140-440); RED BLOOD COUNT 4.31 X10'6 (4.20-5.60); RED CELL DISTRIBUTION WIDTH 14.9 % (11.5-14.5); WHITE BLOOD COUNT 10.7 X10'3 (4.5-11.0)
--- NOTE | 2020-04-24 06:26 | NUR ---
Problems reprioritized. Patient report given, questions answered & plan of care reviewed with Heydi MERINO.
--- NOTE | 2020-04-24 06:31 | NUR ---
Patient in room PCU 3021. I have received report from Alf MERINO and had the opportunity to ask questions and assume patient care. Patient awake and oriented at this time, insulin gtt infusing at 3, fluids running at 250, patient offers no complaints, will continue to monitor.
[2020-04-24 06:40] LABS: ALANINE AMINOTRANSFERASE 20 U/L (12-78); ALBUMIN 2.3 G/DL (3.4-5.0); ALBUMIN/GLOBULIN RATIO 0.7 (1.1-1.5); ALKALINE PHOSPHATASE 74 IU/L (46-116); ANION GAP 12 (8-16); ASPARTATE AMINO TRANSFERASE 15 U/L (10-37); BILIRUBIN,TOTAL 0.2 MG/DL (0.1-1.0); BLOOD UREA NITROGEN 13 MG/DL (7-18); BUN/CREATININE RATIO 13.7 (6.6-38.0); CALCIUM 7.8 MG/DL (8.5-10.1); CHLORIDE 112 MMOL/L (99-107); CREATININE 0.95 MG/DL (0.40-0.90); GLUCOSE 122 MG/DL (70-104); MAGNESIUM 1.6 MG/DL (1.5-2.4); PHOSPHORUS 1.8 MG/DL (2.3-4.5); POTASSIUM 3.5 MMOL/L (3.5-5.1); SODIUM 142 MMOL/L (135-145); TOTAL CARBON DIOXIDE 18.2 MMOL/L (24-32); TOTAL PROTEIN 5.5 G/DL (6.4-8.2); eGFR 69 ML/MIN
[2020-04-24] MEDS: normal saline 1000ml 1,000 ML IV SCH ×2 (07:20→15:20)
--- NOTE | 2020-04-24 07:31 | NUR ---
Insulin is running at the ordered rate of 3, will administer with 2 RN check, and await the pharmacy to bring a new sticker or bag.
[2020-04-24] MEDS: K and/or MAG REPLACEMENT MC SCH ×2 (08:00→20:00)
--- NOTE | 2020-04-24 08:00 | NUR ---
Patient was nauseated during breakfast, and stated that every time she takes a bite she vomits more than she ate. Patient remains on the DKA protocol and insulin is running per order, will continue to monitor.
[2020-04-24] MEDS: Insulin Reg/NS 100units/100mL 100 ML IV SCH (08:08)
[2020-04-24] MEDS: ESCITALOPRAM OXALATE 5 MG TABLET PO SCH (08:09)
[2020-04-24] MEDS: propranolol 10mg tablet PO SCH ×2 (08:09→19:13)
[2020-04-24] MEDS: lisinopril 20mg tablet PO SCH (08:10)
[2020-04-24] MEDS: heparin, porcine 5000 units/ml vial SQ SCH ×2 (08:10→19:13)
[2020-04-24] MEDS: pantoprazole 40 MG vial IV SCH ×2 (08:11→19:12)
[2020-04-24] MEDS: LORazepam 1 MG tablet PO PRN ×2 (08:37→20:16)
[2020-04-24 11:28] LABS: ALANINE AMINOTRANSFERASE 18 U/L (12-78); ALBUMIN 2.4 G/DL (3.4-5.0); ALBUMIN/GLOBULIN RATIO 0.7 (1.1-1.5); ALKALINE PHOSPHATASE 85 IU/L (46-116); ANION GAP 11 (8-16); ASPARTATE AMINO TRANSFERASE 21 U/L (10-37); BILIRUBIN,TOTAL 0.2 MG/DL (0.1-1.0); BLOOD UREA NITROGEN 9 MG/DL (7-18); BUN/CREATININE RATIO 8.6 (6.6-38.0); CALCIUM 7.9 MG/DL (8.5-10.1); CHLORIDE 111 MMOL/L (99-107); CREATININE 1.05 MG/DL (0.40-0.90); GLUCOSE 198 MG/DL (70-104); MAGNESIUM 1.7 MG/DL (1.5-2.4); SODIUM 141 MMOL/L (135-145); TOTAL CARBON DIOXIDE 19.1 MMOL/L (24-32); TOTAL PROTEIN 5.8 G/DL (6.4-8.2); eGFR 61 ML/MIN
[2020-04-24 11:29] LABS: POTASSIUM 4.3 MMOL/L (3.5-5.1)
[2020-04-24 11:38] LABS: C DIFF ANTIGEN NEGATIVE (NEGATIVE); C DIFF SPECIMEN=DIARRHEA? ACCEPTABLE; C DIFFICILE TOXINS A&B NEGATIVE (Neg)
[2020-04-24] MEDS: hydrALAZINE 20mg/ml inj. IV PRN ×2 (11:46→19:24)
[2020-04-24 15:29] LABS: ALANINE AMINOTRANSFERASE 18 U/L (12-78); ALBUMIN 2.5 G/DL (3.4-5.0); ALBUMIN/GLOBULIN RATIO 0.7 (1.1-1.5); ALKALINE PHOSPHATASE 85 IU/L (46-116); ANION GAP 12 (8-16); ASPARTATE AMINO TRANSFERASE 13 U/L (10-37); BILIRUBIN,TOTAL 0.3 MG/DL (0.1-1.0); BLOOD UREA NITROGEN 7 MG/DL (7-18); CALCIUM 8.2 MG/DL (8.5-10.1); CHLORIDE 108 MMOL/L (99-107); CREATININE 0.87 MG/DL (0.40-0.90); GLUCOSE 283 MG/DL (70-104); POTASSIUM 4.1 MMOL/L (3.5-5.1); SODIUM 139 MMOL/L (135-145); TOTAL CARBON DIOXIDE 19.5 MMOL/L (24-32); TOTAL PROTEIN 5.9 G/DL (6.4-8.2); eGFR 76 ML/MIN
[2020-04-24] MEDS: atorvastatin 10mg tablet PO SCH (16:17)
--- NOTE | 2020-04-24 17:50 | NUR ---
Orientee documentation: I have reviewed and agree with interventions, assessments performed and documented by Joaquina MERINO. Orientee Medication Administration: For this medication-pass time frame,medication were reviewed, dispensed, administered and documented per hospital policy by Joaquina MERINO .
--- NOTE | 2020-04-24 18:00 | NUR ---
Problems reprioritized. Patient report given, questions answered & plan of care reviewed with Chantale [].
--- NOTE | 2020-04-24 18:18 | NUR ---
Problems reprioritized. Patient report given, questions answered & plan of care reviewed with Radha MERINO. Patient stable at transfer of care.
--- NOTE | 2020-04-24 18:28 | NUR ---
Patient in room PCU 3021. I have received report from Joaquina MERINO and had the opportunity to ask questions and assume patient care.
--- NOTE | 2020-04-24 18:34 | NUR ---
Patient in room PCU 3021. I have received report from Judith RN & Elham RN and had the opportunity to ask questions and assume patient care.
[2020-04-24] MEDS: lactobacillus rhamnosus 10,000 MMU CELLS/CAPSULE PO SCH (19:13)
[2020-04-24] MEDS: insulin Lispro (HumaLOG) vial - multi-dose SQ SCH (19:17)
[2020-04-24 19:28] LABS: ALANINE AMINOTRANSFERASE 17 U/L (12-78); ALBUMIN 2.3 G/DL (3.4-5.0); ALBUMIN/GLOBULIN RATIO 0.7 (1.1-1.5); ALKALINE PHOSPHATASE 76 IU/L (46-116); ANION GAP 9 (8-16); ASPARTATE AMINO TRANSFERASE 17 U/L (10-37); BILIRUBIN,TOTAL 0.2 MG/DL (0.1-1.0); BLOOD UREA NITROGEN 6 MG/DL (7-18); BUN/CREATININE RATIO 6.1 (6.6-38.0); CALCIUM 7.9 MG/DL (8.5-10.1); CHLORIDE 112 MMOL/L (99-107); CREATININE 0.98 MG/DL (0.40-0.90); GLUCOSE 132 MG/DL (70-104); MAGNESIUM 1.7 MG/DL (1.5-2.4); SODIUM 143 MMOL/L (135-145); TOTAL CARBON DIOXIDE 22.1 MMOL/L (24-32); TOTAL PROTEIN 5.5 G/DL (6.4-8.2); eGFR 66 ML/MIN
[2020-04-24] MEDS ORDERED: insulin glargine (Lantus) pen - multi-dose SQ SCH (21:00)
[2020-04-24 23:46] LABS: ALANINE AMINOTRANSFERASE 16 U/L (12-78); ALBUMIN 2.3 G/DL (3.4-5.0); ALBUMIN/GLOBULIN RATIO 0.7 (1.1-1.5); ALKALINE PHOSPHATASE 74 IU/L (46-116); ANION GAP 11 (8-16); ASPARTATE AMINO TRANSFERASE 15 U/L (10-37); BILIRUBIN,TOTAL 0.3 MG/DL (0.1-1.0); BLOOD UREA NITROGEN 6 MG/DL (7-18); BUN/CREATININE RATIO 6.6 (6.6-38.0); CHLORIDE 111 MMOL/L (99-107); CREATININE 0.91 MG/DL (0.40-0.90); GLUCOSE 183 MG/DL (70-104); SODIUM 143 MMOL/L (135-145); TOTAL CARBON DIOXIDE 21.2 MMOL/L (24-32); TOTAL PROTEIN 5.4 G/DL (6.4-8.2); eGFR 72 ML/MIN
[2020-04-25] MEDS: metroNIDAZOLE-Flagyl 500mg/NS 100 ML IV SCH ×2 (00:13→07:49)
[2020-04-25] MEDS: normal saline 1000ml 1,000 ML IV SCH ×2 (00:13→07:49)
[2020-04-25] MEDS: HYDROmorphone inj. 0.5 MG/0.5 ML DISP.SYRIN IV PRN ×3 (00:37→09:37)
[2020-04-25 02:00] VITALS: BP 133/88
[2020-04-25 02:24] LABS: BASOPHILS % (AUTO) 0.7 % (0-1); EOSINOPHILS # (AUTO) 0.1 X10'3 (0-0.9); EOSINOPHILS % (AUTO) 1.3 % (0-6); HEMATOCRIT 36.1 % (35.0-45.0); HEMOGLOBIN 11.7 g/dl (12.0-16.0); LYMPHOCYTES # (AUTO) 2.2 X10'3 (1.1-4.8); LYMPHOCYTES % (AUTO) 37.3 % (21-51); MEAN CORPUSCULAR HGB CONC 32.5 g/dL (33.0-36.5); MEAN CORPUSCULAR VOLUME 86.3 FL (78-98); MEAN PLATELET VOLUME 8.4 FL (7.4-10.4); MONOCYTES # (AUTO) 0.5 X10'3 (0-0.9); MONOCYTES % (AUTO) 8.3 % (2-12); NEUTROPHILS # (AUTO) 3.1 X10'3 (1.8-7.7); NEUTROPHILS % (AUTO) 52.4 % (42-75); PLATELET COUNT 263 X10'3 (140-440); RED BLOOD COUNT 4.19 X10'6 (4.20-5.60); WHITE BLOOD COUNT 5.8 X10'3 (4.5-11.0)
[2020-04-25 02:39] LABS: ALANINE AMINOTRANSFERASE 16 U/L (12-78); ALBUMIN 2.2 G/DL (3.4-5.0); ALBUMIN/GLOBULIN RATIO 0.7 (1.1-1.5); ALKALINE PHOSPHATASE 70 IU/L (46-116); ANION GAP 7 (8-16); ASPARTATE AMINO TRANSFERASE 16 U/L (10-37); BILIRUBIN,TOTAL 0.3 MG/DL (0.1-1.0); BLOOD UREA NITROGEN 5 MG/DL (7-18); BUN/CREATININE RATIO 5.7 (6.6-38.0); CALCIUM 7.8 MG/DL (8.5-10.1); CHLORIDE 111 MMOL/L (99-107); CREATININE 0.88 MG/DL (0.40-0.90); GLUCOSE 258 MG/DL (70-104); MAGNESIUM 1.6 MG/DL (1.5-2.4); PHOSPHORUS 2.4 MG/DL (2.3-4.5); POTASSIUM 4.2 MMOL/L (3.5-5.1); SODIUM 141 MMOL/L (135-145); TOTAL PROTEIN 5.4 G/DL (6.4-8.2); eGFR 75 ML/MIN
--- NOTE | 2020-04-25 02:49 | NUR ---
sent to Dr. Middleton PAGER ID: [phone] MESSAGE: ROOM 3021 Theo Larsen: DKA CO2 23 ANION GAP 7 Blood sugar is climbing and now 229. Would you like to give 1 X dose of Humalog?\ Thanks, Radha [phone]
[2020-04-25] MEDS ORDERED: insulin regular, human U-100 3ml vial - multi-dose SQ ONE (02:55)
--- NOTE | 2020-04-25 05:53 | NUR ---
I have read and agree with all documentation completed by ANGELIQUE Stevens.
[2020-04-25 06:00] VITALS: BP 151/81
--- NOTE | 2020-04-25 06:00 | NUR ---
Patient in room PCU 3021. I have received report from Kamilah and had the opportunity to ask questions and assume patient care.
--- NOTE | 2020-04-25 06:03 | NUR ---
Patient in room PCU 3021. I have received report from Radha MERINO and had the opportunity to ask questions and assume patient care. Patient was up going to the restroom on her own at shift change, offers no complaints, seems to be in a pleasant mood, will continue to monitor.
[2020-04-25 06:15] LABS: ALANINE AMINOTRANSFERASE 16 U/L (12-78); ALBUMIN/GLOBULIN RATIO 0.7 (1.1-1.5); ALKALINE PHOSPHATASE 70 IU/L (46-116); ANION GAP 6 (8-16); ASPARTATE AMINO TRANSFERASE 13 U/L (10-37); BILIRUBIN,TOTAL 0.2 MG/DL (0.1-1.0); BLOOD UREA NITROGEN 6 MG/DL (7-18); BUN/CREATININE RATIO 6.5 (6.6-38.0); CALCIUM 7.4 MG/DL (8.5-10.1); CHLORIDE 112 MMOL/L (99-107); CREATININE 0.92 MG/DL (0.40-0.90); GLUCOSE 255 MG/DL (70-104); POTASSIUM 3.9 MMOL/L (3.5-5.1); SODIUM 140 MMOL/L (135-145); TOTAL CARBON DIOXIDE 21.9 MMOL/L (24-32); TOTAL PROTEIN 4.9 G/DL (6.4-8.2); eGFR 71 ML/MIN
--- NOTE | 2020-04-25 06:17 | NUR ---
Problems reprioritized. Patient report given, questions answered & plan of care reviewed with Judith MERINO and Joaquina MERINO.
--- NOTE | 2020-04-25 06:17 | NUR ---
Problems reprioritized. Patient report given, questions answered & plan of care reviewed with Miky Wong.
[2020-04-25] MEDS: pantoprazole 40 MG vial IV SCH (07:49)
[2020-04-25] MEDS: K and/or MAG REPLACEMENT MC SCH (07:49)
[2020-04-25] MEDS: propranolol 10mg tablet PO SCH (07:50)
[2020-04-25] MEDS: ESCITALOPRAM OXALATE 5 MG TABLET PO SCH (07:50)
[2020-04-25 07:55] VITALS: BP_SYST 176
[2020-04-25] MEDS: heparin, porcine 5000 units/ml vial SQ SCH (07:55)
[2020-04-25] MEDS: lisinopril 20mg tablet PO SCH (07:55)
[2020-04-25] MEDS: lactobacillus rhamnosus 10,000 MMU CELLS/CAPSULE PO SCH (08:00)
[2020-04-25] MEDS: insulin Lispro (HumaLOG) vial - multi-dose SQ SCH (08:21)
[2020-04-25 10:15] LABS: ALBUMIN 2.3 G/DL (3.4-5.0); ANION GAP 8 (8-16); BLOOD UREA NITROGEN 6 MG/DL (7-18); BUN/CREATININE RATIO 6.5 (6.6-38.0); CALCIUM 7.8 MG/DL (8.5-10.1); CHLORIDE 112 MMOL/L (99-107); CREATININE 0.92 MG/DL (0.40-0.90); GLUCOSE 192 MG/DL (70-104); SODIUM 141 MMOL/L (135-145); TOTAL CARBON DIOXIDE 21.5 MMOL/L (24-32); eGFR 71 ML/MIN
[2020-04-25] MEDS ORDERED: METR500T PO (10:18)
--- NOTE | 2020-04-25 12:00 | NUR ---
Patient was d/c to home. She had a friend pick her up. She left with all of her belongings. PIV was removed and cannula was intact.
--- NOTE | 2020-04-25 12:18 | NUR ---
Orientee documentation: I have reviewed and agree with interventions, assessments performed and documented by Joaquina Bolaños. Orientee Medication Administration: For this medication-pass time frame, medication were reviewed, dispensed, administered and documented per hospital policy by Joaquina BOLAÑOS.
[2020-04-25] MEDS ORDERED: LEVO500T2 PO (12:20)
[2020-04-26] MEDS ORDERED: cholecalciferol (vitamin D) 400 unit tablet PO SCH (08:00)
[2020-04-28] MEDS ORDERED: cholecalciferol (vitamin D) 400 unit tablet PO SCH (08:00)
== END 2020-04-25 12:01 | disposition home or self-care (01) | DRG 637 ==
LOC: ER 11:15 → ED HOLD 13:32 → EDBEDREQ 14:48 → CANBEDREQ 15:08 → PCU 3S 17:32
PROVIDERS: ADMIT Family Medicine; ATTEND Internal Medicine
DX: E10.10 Type 1 diabetes mellitus with ketoacidosis without coma (principal); N17.0 Acute kidney failure with tubular necrosis; K52.9 Noninfective gastroenteritis and colitis, unspecified; K21.9 Gastro-esophageal reflux disease without esophagitis; I16.0 Hypertensive urgency; K29.00 Acute gastritis without bleeding; F20.9 Schizophrenia, unspecified; E86.0 Dehydration; E78.00 Pure hypercholesterolemia, unspecified; F12.90 Cannabis use, unspecified, uncomplicated; E78.5 Hyperlipidemia, unspecified; E10.43 Type 1 diabetes mellitus with diabetic autonomic (poly)neuropathy; K31.84 Gastroparesis; E10.51 Type 1 diabetes mellitus with diabetic peripheral angiopathy without gangrene; F31.9 Bipolar disorder, unspecified; F41.8 Other specified anxiety disorders; I10 Essential (primary) hypertension; Z79.4 Long term (current) use of insulin; Z79.899 Other long term (current) drug therapy; Z82.49 Family history of ischemic heart disease and other diseases of the circulatory system; Z83.3 Family history of diabetes mellitus; Z85.43 Personal history of malignant neoplasm of ovary; Z92.21 Personal history of antineoplastic chemotherapy; Z88.8 Allergy status to other drugs, medicaments and biological substances
CPT/HCPCS: 36415; 36600; 71045; 80048; 80053; 80061; 80305; 81001; 81025; 82803; 82947; 82948; 83036; 83605; 83690; 83735; 84100; 84145; 84443; 85018; 85025; 85610; 85730; 87040; 87045; 87046; 87081; 87324; 87449; 89055; 97116; 97162; 99291; C9113; G0378; J0360; J0696; J0780; J1170; J1644; J1815; J2060; J2405; J3010; J3480; J3490; J7030

== ENCOUNTER 2020-06-20 08:50 | Inpatient (IN) | payer MEDICARE, MEDICAID ==
[~2020-06-20] VITALS: Ht 157.5 cm; Wt 103.4 kg
[~2020-06-20 08:50] MED LIST changes: -ATI1T PO; -ATOR20TA66 PO; -BLOO-384; +BREX2TAB PO; +CHOL500049 PO; -DULO60CA45 PO; +ESCI20TA45 PO; -HYDR-3972 PO; -INSU100V11; +INSU100V13 SQ; -LANTUS SUBCUT; -LISI-600 PO; +LISI2.5T2 PO; +LORA2TAB96 PO; +LOVA20TA2 PO; -ONDA4TAB12 PO; -ONDA4TAB6 PO; +PENT400T17 PO; +QUET25TA34 PO
[2020-06-20] MEDS ORDERED: proCHLORperazine 10 MG/2 ml inj IV ONE (09:15)
[2020-06-20] MEDS ORDERED: ondansetron/PF 4mg/2ml inj IV ONE (09:15)
[2020-06-20] MEDS ORDERED: normal saline 1000ML IV soln IVB ONE (09:15)
--- NOTE | 2020-06-20 09:36 | NUR ---
PT WITH FECES ALL OVER, UP TO BEDSIDE COMMODE AND CLEANED, UA OBTAINED. PT STILL VOMITING BLOOD
[2020-06-20 09:45] LABS: ABG BASE EXCESS -18.1 mmol/L (-2.0-2.0); ABG OXYGEN SATURATION 89.9 % (94-97); ABG PCO2 (T) 25.9 mmHg (32.0-45.0); ALLEN'S TEST POSITIVE; FCOHb 1.5 % (0.0-3.9); FMetHb 0.1 % (0.0-1.5); FO2Hb 88.5 % (94-97); TOTAL HEMOGLOBIN 13.1 G/dl (12.0-16.0)
[2020-06-20] MEDS ORDERED: fentaNYL/PF 50MCG/1 ML 2ML syringe IV ONE (09:55)
[2020-06-20 10:01] LABS: URINE HCG NEGATIVE (NEG)
[2020-06-20 10:12] LABS: CLARITY,URINE CLEAR (Clear); COLOR,URINE YELLOW (Yellow); GLUCOSE, URINE >=1000 mg/dl (Neg); KETONES,URINE >=80 mg/dl (Neg); LEUKOCYTE ESTERASE ,URINE NEGATIVE (Neg); NITRITES, URINE NEGATIVE (Neg); OCCULT BLOOD,URINE LARGE (Neg); PROTEIN,URINE 100 mg/dl (Neg); UROBILINOGEN,URINE 0.2 E.U/dL (0.2-1.0)
[2020-06-20 10:13] LABS: UA COLLECTION TYPE CLN CATCH MIDSTREAM
[2020-06-20] MEDS ORDERED: famotidine/PF 10 mg/ml inj IV ONE (10:15)
[2020-06-20] MEDS ORDERED: pantoprazole 40 MG vial IV ONE (10:15)
[2020-06-20 10:21] LABS: BACTERIA,URINE 3+ /HPF (Neg); SQUAMOUS EPITHELIAL CELL,UR MANY /LPF (FEW); TRANSITIONAL EPI CELLS,URINE FEW /HPF
[2020-06-20 10:37] LABS: ALANINE AMINOTRANSFERASE 15 U/L (12-78); ALBUMIN 2.6 G/DL (3.4-5.0); ALBUMIN/GLOBULIN RATIO 0.7 (1.1-1.5); ALKALINE PHOSPHATASE 98 IU/L (46-116); ANION GAP 26 (8-16); ASPARTATE AMINO TRANSFERASE 14 U/L (10-37); BILIRUBIN,TOTAL 0.4 MG/DL (0.1-1.0); BLOOD UREA NITROGEN 42 MG/DL (7-18); BUN/CREATININE RATIO 27.3 (6.6-38.0); CALCIUM 8.4 MG/DL (8.5-10.1); CHLORIDE 97 MMOL/L (99-107); CREATININE 1.54 MG/DL (0.40-0.90); LIPASE 52 U/L (73-393); POTASSIUM 4.5 MMOL/L (3.5-5.1); SODIUM 132 MMOL/L (135-145); TOTAL PROTEIN 6.2 G/DL (6.4-8.2); TROPONIN I < 0.04 NG/ML (0.0-0.05); eGFR 39 ML/MIN
[2020-06-20 10:43] LABS: GLUCOSE 686 MG/DL (70-104)
[2020-06-20] MEDS ORDERED: Insulin Reg/NS 100units/100mL 100 ML IV SCH ×2 (10:48→15:09)
[2020-06-20] MEDS ORDERED: normal saline 1000ml 1,000 ML IV ONE (10:50)
[2020-06-20] MEDS ORDERED: insulin regular, human 10 units/0.1 ml syringe IV ONE (10:50)
[2020-06-20] MEDS ORDERED: insulin regular, human U-100 3ml vial - multi-dose IV ONE (10:55)
[2020-06-20 10:59] LABS: BASOPHILS # (AUTO) 0.1 X10'3 (0-0.2); BASOPHILS % (AUTO) 0.3 % (0-1); EOSINOPHILS % (AUTO) 0.2 % (0-6); HEMOGLOBIN 12.1 g/dl (12.0-16.0); LYMPHOCYTES # (AUTO) 2.2 X10'3 (1.1-4.8); LYMPHOCYTES % (AUTO) 11.8 % (21-51); MEAN CORPUSCULAR HEMOGLOBIN 28.4 PG (27.0-31.0); MEAN PLATELET VOLUME 9.7 FL (7.4-10.4); MONOCYTES # (AUTO) 0.5 X10'3 (0-0.9); MONOCYTES % (AUTO) 2.8 % (2-12); NEUTROPHILS # (AUTO) 15.8 X10'3 (1.8-7.7); NEUTROPHILS % (AUTO) 84.9 % (42-75); PLATELET COUNT 292 X10'3 (140-440); RED BLOOD COUNT 4.24 X10'6 (4.20-5.60); RED CELL DISTRIBUTION WIDTH 15.9 % (11.5-14.5); WHITE BLOOD COUNT 18.6 X10'3 (4.5-11.0)
--- NOTE | 2020-06-20 11:02 | NUR ---
WAITING INSULIN GTT FROM PHARMACY
--- NOTE | 2020-06-20 11:12 | NUR ---
TO CT VIA W/C
[2020-06-20] MEDS ORDERED: acetaminophen 325mg tablet PO PRN (11:20)
[2020-06-20] MEDS ORDERED: magnesium 4gm in 100ml NS 100 ML IV PRN (11:20)
[2020-06-20] MEDS: normal saline 1000ml 1,000 ML IV SCH ×5 (11:20→23:09)
[2020-06-20] MEDS ORDERED: potassium CL 10mEq/100ml bag 100 ML IV PRN ×4 (11:20→15:10)
[2020-06-20] MEDS ORDERED: potassium Cl 20 mEq SR tablet PO PRN ×4 (11:20→15:10)
[2020-06-20] MEDS ORDERED: magnesium Cl slow-release 64mg tablet PO PRN (11:20)
[2020-06-20] MEDS ORDERED: ondansetron/PF 4mg/2ml inj IV PRN (11:20)
[2020-06-20] MEDS ORDERED: magnesium 2GM in 50ml NS 50 ML IV PRN (11:20)
--- NOTE | 2020-06-20 11:28 | NUR ---
BACK FROM CT. CALLED PHARMACY FOR ETA INSULIN GTT.
[2020-06-20 11:31] LABS: HEMATOCRIT 35.6 % (35.0-45.0)
[2020-06-20 11:32] LABS: MEAN CORPUSCULAR HGB CONC 33.6 g/dL (33.0-36.5); MEAN CORPUSCULAR VOLUME 85.8 FL (78-98)
--- NOTE | 2020-06-20 12:51 | NUR ---
PT UP AMBULATED TO BR. 1ST ACCUCHECK AFTER INSULIN GTT STARTED DONE. RESTING IN POC.
[2020-06-20] MEDS: Potassium Cl inj 20 MEQ in normal saline 1000ml 990 ML IV SCH ×3 (13:15→21:15)
--- NOTE | 2020-06-20 13:56 | NUR ---
Patient in room ED 7. I have received report from Gretchen MERINO from ED and had the opportunity to ask questions and assume patient care. Awaiting patient's arrival from ED, ER will try to draw labs from one of the patient's field starts and also was going to try to get an order for pain medications from Dr. Waddell.
--- NOTE | 2020-06-20 14:20 | NUR ---
DR. BAUTISTA IN TO SEE PT.
[2020-06-20 14:39] LABS: ALBUMIN 2.2 G/DL (3.4-5.0); ANION GAP 25 (8-16); BLOOD UREA NITROGEN 41 MG/DL (7-18); CALCIUM 6.9 MG/DL (8.5-10.1); CHLORIDE 103 MMOL/L (99-107); CREATININE 1.52 MG/DL (0.40-0.90); GLUCOSE 374 MG/DL (70-104); POTASSIUM 3.8 MMOL/L (3.5-5.1); SODIUM 136 MMOL/L (135-145); eGFR 40 ML/MIN
[2020-06-20] MEDS ORDERED: QUEtiapine 25mg tablet PO PRN (14:45)
[2020-06-20 14:46] LABS: TOTAL CARBON DIOXIDE 8.5 MMOL/L (24-32)
--- NOTE | 2020-06-20 14:50 | NUR ---
Patient arrived to floor at 1430, VS being obtained, skin check done, oriented to room, and Dr. Waddell was paged about critical CO2 and pain medication. promotional table spacer PAGER ID: [phone] MESSAGE: Rm [id number]. Critical CO2 of 8.5, also need pain medication order, patient is allergic to morphine. Thank you, Judith [phone]
[2020-06-20 15:00] VITALS: BP 127/69
--- NOTE | 2020-06-20 15:07 | NUR ---
PAGER ID: [phone] MESSAGE: [id number], Chava. Patient needs DKA protocol order set put in please. Thank you, Judith Lopez
[2020-06-20] MEDS ORDERED: sodium bicarbonate (8.4%) inj. 50 MEQ in dextrose 5% water 500ml 250 ML IV PRN (15:09)
[2020-06-20] MEDS ORDERED: sodium bicarbonate (8.4%) inj. 100 MEQ in dextrose 5% water 500ml 500 ML IV PRN (15:09)
[2020-06-20] MEDS ORDERED: insulin regular, human U-100 3ml vial - multi-dose IV PRN (15:10)
[2020-06-20] MEDS ORDERED: sodium phosphate inj. 30 MMOL in dextrose 5%-water 250 ML IV PRN (15:10)
[2020-06-20] MEDS ORDERED: Neutra Phos packet PO PRN (15:10)
[2020-06-20] MEDS ORDERED: sodium phosphate inj. 15 MMOL in dextrose 5%-water 250 ML IV PRN (15:10)
[2020-06-20] MEDS: HYDROmorphone 1 mg/ml syringe IV PRN ×2 (15:24→22:18)
[2020-06-20 17:18] LABS: ALANINE AMINOTRANSFERASE 17 U/L (12-78); ALBUMIN 2.1 G/DL (3.4-5.0); ALBUMIN/GLOBULIN RATIO 0.6 (1.1-1.5); ALKALINE PHOSPHATASE 77 IU/L (46-116); ANION GAP 15 (8-16); ASPARTATE AMINO TRANSFERASE 12 U/L (10-37); BILIRUBIN,TOTAL 0.3 MG/DL (0.1-1.0); BLOOD UREA NITROGEN 43 MG/DL (7-18); BUN/CREATININE RATIO 28.3 (6.6-38.0); CALCIUM 7.4 MG/DL (8.5-10.1); CHLORIDE 103 MMOL/L (99-107); CREATININE 1.52 MG/DL (0.40-0.90); GLUCOSE 297 MG/DL (70-104); POTASSIUM 4.6 MMOL/L (3.5-5.1); SODIUM 134 MMOL/L (135-145); TOTAL CARBON DIOXIDE 15.7 MMOL/L (24-32); TOTAL PROTEIN 5.4 G/DL (6.4-8.2); eGFR 40 ML/MIN
[2020-06-20 18:00] VITALS: BP 109/62
[2020-06-20] MEDS: potassium CL 20mEq in D5-1/2NS 1,000 ML IV PRN (18:09)
--- NOTE | 2020-06-20 18:10 | NUR ---
Problems reprioritized. Patient report given, questions answered & plan of care reviewed with Sandy MERINO. Patient stable at transfer of care.
--- NOTE | 2020-06-20 18:19 | NUR ---
Orientee documentation: I have reviewed and agree with interventions, assessments performed and documented by Kristen MERINO. Orientee Medication Administration: For this medication-pass time frame, medication were reviewed, dispensed, administered and documented per hospital policy by Kristen MERINO .
--- NOTE | 2020-06-20 18:22 | NUR ---
Problems reprioritized. Patient report given, questions answered & plan of care reviewed with
--- NOTE | 2020-06-20 18:24 | NUR ---
Patient in room PCU 3013. I have received report from SANDRA MERINO and had the opportunity to ask questions and assume patient care.
[2020-06-20 20:06] LABS: CLARITY,URINE SLIGHTLY CLOUDY (Clear); COLOR,URINE YELLOW (Yellow); GLUCOSE, URINE >=1000 mg/dl (Neg); KETONES,URINE >=80 mg/dl (Neg); LEUKOCYTE ESTERASE ,URINE NEGATIVE (Neg); NITRITES, URINE NEGATIVE (Neg); OCCULT BLOOD,URINE LARGE (Neg); PH,URINE 5.5 (4.8-8.0); PROTEIN,URINE 100 mg/dl (Neg); UROBILINOGEN,URINE 0.2 E.U/dL (0.2-1.0)
[2020-06-20 20:18] LABS: UA COLLECTION TYPE CLN CATCH MIDSTREAM
[2020-06-20 20:26] LABS: FINE GRANULAR CAST 0-3 /LPF (NEGATIVE); MUCUS STRANDS NONE SEEN /LPF (Neg); SQUAMOUS EPITHELIAL CELL,UR FEW /LPF (FEW)
[2020-06-20 20:27] LABS: WBC,URINE 0-4 /HPF (0-4)
[2020-06-20 20:28] LABS: BACTERIA,URINE FEW /HPF (Neg)
[2020-06-20] MEDS: heparin, porcine 5000 units/ml vial SQ SCH (21:19)
[2020-06-20] MEDS: LORazepam 1 MG tablet PO PRN (21:20)
[2020-06-20] MEDS: pantoprazole 40 MG vial IV SCH (21:25)
[2020-06-20] MEDS: K and/or MAG REPLACEMENT MC SCH ×2 (21:25→21:38)
[2020-06-20 21:54] LABS: ALANINE AMINOTRANSFERASE 17 U/L (12-78); ALBUMIN 2.1 G/DL (3.4-5.0); ALBUMIN/GLOBULIN RATIO 0.6 (1.1-1.5); ALKALINE PHOSPHATASE 78 IU/L (46-116); ANION GAP 7 (8-16); ASPARTATE AMINO TRANSFERASE 16 U/L (10-37); BILIRUBIN,TOTAL 0.2 MG/DL (0.1-1.0); BLOOD UREA NITROGEN 40 MG/DL (7-18); BUN/CREATININE RATIO 28.4 (6.6-38.0); CALCIUM 7.6 MG/DL (8.5-10.1); CHLORIDE 106 MMOL/L (99-107); CREATININE 1.41 MG/DL (0.40-0.90); GLUCOSE 178 MG/DL (70-104); PHOSPHORUS 1.6 MG/DL (2.3-4.5); POTASSIUM 4.3 MMOL/L (3.5-5.1); SODIUM 135 MMOL/L (135-145); TOTAL PROTEIN 5.5 G/DL (6.4-8.2); eGFR 43 ML/MIN
[2020-06-20 23:09] VITALS: BP 120/71
[2020-06-21] MEDS: potassium CL 20mEq in D5-1/2NS 1,000 ML IV PRN (01:34)
[2020-06-21 01:38] LABS: BASOPHILS % (AUTO) 0.3 % (0-1); EOSINOPHILS % (AUTO) 0.2 % (0-6); HEMATOCRIT 33.7 % (35.0-45.0); HEMOGLOBIN 11.2 g/dl (12.0-16.0); LYMPHOCYTES # (AUTO) 3.2 X10'3 (1.1-4.8); MEAN CORPUSCULAR HGB CONC 33.2 g/dL (33.0-36.5); MEAN CORPUSCULAR VOLUME 87.2 FL (78-98); MEAN PLATELET VOLUME 8.7 FL (7.4-10.4); MONOCYTES # (AUTO) 1.4 X10'3 (0-0.9); MONOCYTES % (AUTO) 9.9 % (2-12); NEUTROPHILS # (AUTO) 9.2 X10'3 (1.8-7.7); NEUTROPHILS % (AUTO) 66.6 % (42-75); PLATELET COUNT 288 X10'3 (140-440); RED BLOOD COUNT 3.86 X10'6 (4.20-5.60); RED CELL DISTRIBUTION WIDTH 15.3 % (11.5-14.5); WHITE BLOOD COUNT 13.7 X10'3 (4.5-11.0)
[2020-06-21 01:39] LABS: ALBUMIN 2.1 G/DL (3.4-5.0); ANION GAP 6 (8-16); BLOOD UREA NITROGEN 36 MG/DL (7-18); BUN/CREATININE RATIO 27.7 (6.6-38.0); CALCIUM 7.6 MG/DL (8.5-10.1); CHLORIDE 108 MMOL/L (99-107); GLUCOSE 74 MG/DL (70-104); MAGNESIUM 1.7 MG/DL (1.5-2.4); PHOSPHORUS 2.3 MG/DL (2.3-4.5); POTASSIUM 4.1 MMOL/L (3.5-5.1); SODIUM 138 MMOL/L (135-145); TOTAL CARBON DIOXIDE 23.7 MMOL/L (24-32); eGFR 47 ML/MIN
[2020-06-21] MEDS: DEXTROSE 10 % AND 0.45 % NACL 1,000 ML IV SCH ×3 (02:34→16:20)
[2020-06-21 03:00] VITALS: BP 127/77
[2020-06-21] MEDS: HYDROmorphone 1 mg/ml syringe IV PRN ×3 (04:56→16:38)
--- NOTE | 2020-06-21 06:02 | NUR ---
Problems reprioritized. Patient report given, questions answered & plan of care reviewed with Judith MERINO.
[2020-06-21 06:21] LABS: ALANINE AMINOTRANSFERASE 14 U/L (12-78); ALBUMIN/GLOBULIN RATIO 0.6 (1.1-1.5); ALKALINE PHOSPHATASE 69 IU/L (46-116); ANION GAP 9 (8-16); ASPARTATE AMINO TRANSFERASE 14 U/L (10-37); BILIRUBIN,TOTAL 0.2 MG/DL (0.1-1.0); BLOOD UREA NITROGEN 31 MG/DL (7-18); BUN/CREATININE RATIO 24.6 (6.6-38.0); CALCIUM 7.5 MG/DL (8.5-10.1); CHLORIDE 106 MMOL/L (99-107); CREATININE 1.26 MG/DL (0.40-0.90); GLUCOSE 95 MG/DL (70-104); PHOSPHORUS 2.2 MG/DL (2.3-4.5); POTASSIUM 3.4 MMOL/L (3.5-5.1); SODIUM 137 MMOL/L (135-145); TOTAL CARBON DIOXIDE 22.2 MMOL/L (24-32); TOTAL PROTEIN 5.3 G/DL (6.4-8.2); eGFR 49 ML/MIN
--- NOTE | 2020-06-21 06:28 | NUR ---
promotional table spacer PAGER ID: [phone] MESSAGE: Rm [id number], Chava. Pt's labs are corrected and she would like to eat breakfast, can I enter a carb control diet and follow the protocol and then stop the insulin gtt? Thank you, Judith [phone]
--- NOTE | 2020-06-21 06:37 | NUR ---
Spoke with Dr. Middleton, new orders obtained for a carb control diet and to feed the patient and follow the protocol and take patient off insulin gtt after protocol has been followed. In addition, replace potassium with the PO K dur, and to start NS at 100ml/hr. Will continue to monitor hourly blood sugars and obtain labs after the gtt has been turned off to ensure patient does not return to DKA.
[2020-06-21 07:00] VITALS: BP 113/84
--- NOTE | 2020-06-21 07:09 | NUR ---
Patient accidently pulled out PIV, and Blood glucose was 64. Insulin gtt was stopped and Patient will be changed to the NS at [address] Middleton ordered.
[2020-06-21] MEDS ORDERED: dextrose 50%-water 50ml dispensing syringe IV PRN ×2 (07:45)
[2020-06-21] MEDS ORDERED: MESSAGE TO PHARMACY PO ONE (07:45)
[2020-06-21] MEDS ORDERED: dextrose ORAL solution 15 GM/59 ML bottle PO PRN ×2 (07:45)
[2020-06-21] MEDS ORDERED: glucagon, human recombinant 1mg kit SUBCUT PRN (07:45)
[2020-06-21] MEDS: K and/or MAG REPLACEMENT MC SCH ×4 (08:00→20:00)
[2020-06-21] MEDS ORDERED: ergocalciferol (Vitamin D) 50,000 unit capsule PO SCH (08:00)
[2020-06-21] MEDS: insulin Lispro (HumaLOG) vial - multi-dose SQ SCH ×3 (08:04→18:39)
--- NOTE | 2020-06-21 08:40 | NUR ---
Pt presented with c/o N/V after her insulin pump stopped working per H&P and admitted with DKA and MAGGY. Per records pt with an A1c of 11.5%, seen by ROXANA at last admit 04/23 for DM education. No further education warranted at this time. Pt currently on a CHO controlled diet, pending documentation of PO intake. LBM 06/20. Will continue to follow and monitor need for nutrition intervention. Recommendations: 1) Continue CHO controlled diet 2) Monitor need for nutrition intervention 3) Bowel care PRN 4) Scaled weights per rx Addendum: 06/21/20 at [address] Amended: Links added.
[2020-06-21] MEDS: atorvastatin 10mg tablet PO SCH (08:42)
[2020-06-21] MEDS: pantoprazole 40 MG vial IV SCH ×2 (08:42→20:26)
[2020-06-21] MEDS: ESCITALOPRAM OXALATE 5 MG TABLET PO SCH (08:42)
[2020-06-21] MEDS: heparin, porcine 5000 units/ml vial SQ SCH ×2 (08:48→20:25)
--- NOTE | 2020-06-21 09:18 | NUR ---
PAGER ID: [phone] MESSAGE: Hany Melo3B, Chava, Please advise, Judith [phone]
[2020-06-21] MEDS ORDERED: insulin Lispro (HumaLOG) vial - multi-dose SQ ONE ×2 (09:35→11:45)
[2020-06-21] MEDS ORDERED: acetaminophen 325mg tablet PO PRN (09:35)
--- NOTE | 2020-06-21 09:46 | NUR ---
Spoke to Dr. Waddell regarding the patients elevated blood glucose, new order obtained for one time subcut 5 units humalog insulin and also tylenol for pain. Will administer and continue to monitor blood sugars hourly to ensure the safety of the patient.
[2020-06-21 10:33] LABS: ALANINE AMINOTRANSFERASE 14 U/L (12-78); ALBUMIN/GLOBULIN RATIO 0.6 (1.1-1.5); ALKALINE PHOSPHATASE 69 IU/L (46-116); ANION GAP 13 (8-16); ASPARTATE AMINO TRANSFERASE 16 U/L (10-37); BILIRUBIN,TOTAL 0.3 MG/DL (0.1-1.0); BLOOD UREA NITROGEN 28 MG/DL (7-18); BUN/CREATININE RATIO 24.1 (6.6-38.0); CALCIUM 7.4 MG/DL (8.5-10.1); CHLORIDE 104 MMOL/L (99-107); CREATININE 1.16 MG/DL (0.40-0.90); GLUCOSE 309 MG/DL (70-104); PHOSPHORUS 2.5 MG/DL (2.3-4.5); POTASSIUM 4.6 MMOL/L (3.5-5.1); SODIUM 134 MMOL/L (135-145); TOTAL CARBON DIOXIDE 17.2 MMOL/L (24-32); TOTAL PROTEIN 5.2 G/DL (6.4-8.2); eGFR 54 ML/MIN
[2020-06-21 11:00] VITALS: BP 123/80
--- NOTE | 2020-06-21 11:36 | NUR ---
Patient in room PCU 3013. I have received report from Sandy and had the opportunity to ask questions and assume patient care.
--- NOTE | 2020-06-21 12:05 | NUR ---
Spoke with Dr. Waddell, new orders obtained to give 5 units subcut insulinbefore each meal until the patients Blood glucose is within normal limits. Also orders to draw a lipase and get an abdominal ultrasound. Will continue to monitor.
[2020-06-21] MEDS: normal saline 1000ml 1,000 ML IV SCH ×2 (12:40→22:30)
--- NOTE | 2020-06-21 13:35 | NUR ---
Rm [id number]. Pt has 24 hr. tele order that is expiring would you like to continue tele monitoring, please advise. Kristen/ Judith [phone]
[2020-06-21] MEDS: LORazepam 1 MG tablet PO PRN ×2 (13:52→20:53)
[2020-06-21 14:49] LABS: ALANINE AMINOTRANSFERASE 19 U/L (12-78); ALBUMIN 2.2 G/DL (3.4-5.0); ALBUMIN/GLOBULIN RATIO 0.6 (1.1-1.5); ALKALINE PHOSPHATASE 78 IU/L (46-116); ANION GAP 11 (8-16); ASPARTATE AMINO TRANSFERASE 21 U/L (10-37); BILIRUBIN,TOTAL 0.2 MG/DL (0.1-1.0); BLOOD UREA NITROGEN 24 MG/DL (7-18); BUN/CREATININE RATIO 19.4 (6.6-38.0); CALCIUM 7.6 MG/DL (8.5-10.1); CHLORIDE 108 MMOL/L (99-107); CREATININE 1.24 MG/DL (0.40-0.90); GLUCOSE 218 MG/DL (70-104); POTASSIUM 4.3 MMOL/L (3.5-5.1); SODIUM 138 MMOL/L (135-145); TOTAL CARBON DIOXIDE 18.9 MMOL/L (24-32); TOTAL PROTEIN 5.8 G/DL (6.4-8.2); eGFR 50 ML/MIN
[2020-06-21 15:00] VITALS: BP 171/89
[2020-06-21 15:08] LABS: LIPASE < 50 U/L (73-393)
[2020-06-21 18:00] VITALS: BP 150/84
--- NOTE | 2020-06-21 18:15 | NUR ---
Problems reprioritized. Patient report given, questions answered & plan of care reviewed with Zeb.
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
--- NOTE | 2020-06-21 18:24 | NUR ---
Problems reprioritized. Patient report given, questions answered & plan of care reviewed with Zeb MERINO. Patient stable at transfer of care.
--- NOTE | 2020-06-21 18:25 | NUR ---
Orientee documentation: I have reviewed and agree with interventions, assessments performed and documented by Kristen MERINO. Orientee Medication Administration: For this medication-pass time frame, medication were reviewed, dispensed, administered and documented per hospital policy by Kristen MERINO.
--- NOTE | 2020-06-21 18:26 | NUR ---
Patient in room PCU 3013B. I have received report from ANGELIQUE FLORES AND ANGELIQUE ARAGON and had the opportunity to ask questions and assume patient care. PATIENT AWAKE FOR BEDSIDE REPORT, ON ROOM AIR, AND HAS NS INFUSING AT 100 ML/HR PER PROVIDER ORDER. PATIENT OFFERS NO COMPLAINTS AT THIS TIME. WILL CONTINUE TO MONITOR CLOSELY.
[2020-06-21] MEDS ORDERED: insulin glargine (Lantus) pen - multi-dose SQ SCH (21:00)
[2020-06-21 23:00] VITALS: BP 167/92
--- NOTE | 2020-06-22 00:07 | NUR ---
Q1H ACCUCHECK INTERVENTION FOR INSULIN GTT COMPLETED. PATIENT NO LONGER ON INSULIN GTT AND IS EATING. WILL CONTINUE TO MONITOR CLOSELY.
[2020-06-22] MEDS: HYDROmorphone 1 mg/ml syringe IV PRN ×2 (00:41→07:41)
[2020-06-22] MEDS: normal saline 1000ml 1,000 ML IV SCH (00:41)
--- NOTE | 2020-06-22 02:17 | NUR ---
PAGER ID: [phone] MESSAGE: Ext [phone], ANGELIQUE Carrington for patient in 3013B admitted 06/20 for DKA. Patient BP 187/99 HR 90. Patient resting comfortably in bed. No PRNs noted in eMAR.
[2020-06-22] MEDS ORDERED: hydrALAZINE 20mg/ml inj. IV PRN (02:20)
[2020-06-22 03:00] VITALS: BP 187/99
[2020-06-22 03:20] VITALS: BP 201/91
--- NOTE | 2020-06-22 03:40 | NUR ---
PAGER ID: [phone] MESSAGE: Ext. [phone], ANGELIQUE Carrington for [id number]. 10 mg hydralazine iv administered. BP now 201/91 L arm.
[2020-06-22] MEDS: insulin Lispro (HumaLOG) vial - multi-dose SQ SCH ×2 (04:32→08:56)
--- NOTE | 2020-06-22 06:22 | NUR ---
Patient in room PCU 3013. I have received report from Zeb MERINO and had the opportunity to ask questions and assume patient care. Patient up to bedside commode. Offers no complaints at this time.
--- NOTE | 2020-06-22 06:23 | NUR ---
Patient in room PCU 3013. I have received report from Zeb MERINO and had the opportunity to ask questions and assume patient care. Patient up to bedside commode at transfer of care. all current needs met.
--- NOTE | 2020-06-22 06:36 | NUR ---
Problems reprioritized. Patient report given, questions answered & plan of care reviewed with ANGELIQUE MAC AND ANGELIQUE ATKINS.
[2020-06-22 07:00] VITALS: BP 179/95
[2020-06-22 07:36] LABS: BASOPHILS # (AUTO) 0.1 X10'3 (0-0.2); BASOPHILS % (AUTO) 0.8 % (0-1); EOSINOPHILS # (AUTO) 0.1 X10'3 (0-0.9); EOSINOPHILS % (AUTO) 1.5 % (0-6); HEMATOCRIT 35.8 % (35.0-45.0); HEMOGLOBIN 11.8 g/dl (12.0-16.0); LYMPHOCYTES # (AUTO) 2.4 X10'3 (1.1-4.8); LYMPHOCYTES % (AUTO) 33.6 % (21-51); MEAN CORPUSCULAR HEMOGLOBIN 28.8 PG (27.0-31.0); MEAN CORPUSCULAR HGB CONC 32.9 g/dL (33.0-36.5); MEAN CORPUSCULAR VOLUME 87.5 FL (78-98); MEAN PLATELET VOLUME 8.4 FL (7.4-10.4); MONOCYTES # (AUTO) 0.4 X10'3 (0-0.9); MONOCYTES % (AUTO) 6.2 % (2-12); NEUTROPHILS # (AUTO) 4.1 X10'3 (1.8-7.7); NEUTROPHILS % (AUTO) 57.9 % (42-75); PLATELET COUNT 267 X10'3 (140-440); RED BLOOD COUNT 4.09 X10'6 (4.20-5.60); RED CELL DISTRIBUTION WIDTH 15.8 % (11.5-14.5); WHITE BLOOD COUNT 7.1 X10'3 (4.5-11.0)
[2020-06-22 07:51] LABS: ALANINE AMINOTRANSFERASE 18 U/L (12-78); ALBUMIN 2.2 G/DL (3.4-5.0); ALBUMIN/GLOBULIN RATIO 0.6 (1.1-1.5); ALKALINE PHOSPHATASE 79 IU/L (46-116); ANION GAP 8 (8-16); ASPARTATE AMINO TRANSFERASE 21 U/L (10-37); BILIRUBIN,TOTAL 0.2 MG/DL (0.1-1.0); BLOOD UREA NITROGEN 14 MG/DL (7-18); BUN/CREATININE RATIO 13.9 (6.6-38.0); CALCIUM 7.9 MG/DL (8.5-10.1); CHLORIDE 107 MMOL/L (99-107); CREATININE 1.01 MG/DL (0.40-0.90); GLUCOSE 256 MG/DL (70-104); MAGNESIUM 1.6 MG/DL (1.5-2.4); POTASSIUM 4.1 MMOL/L (3.5-5.1); SODIUM 138 MMOL/L (135-145); TOTAL CARBON DIOXIDE 23.3 MMOL/L (24-32); TOTAL PROTEIN 5.6 G/DL (6.4-8.2); eGFR 64 ML/MIN
[2020-06-22] MEDS: K and/or MAG REPLACEMENT MC SCH ×2 (08:00)
[2020-06-22] MEDS: atorvastatin 10mg tablet PO SCH (08:51)
[2020-06-22] MEDS: pantoprazole 40 MG vial IV SCH (08:51)
[2020-06-22] MEDS: ESCITALOPRAM OXALATE 5 MG TABLET PO SCH (08:52)
[2020-06-22] MEDS: heparin, porcine 5000 units/ml vial SQ SCH (08:53)
--- NOTE | 2020-06-22 10:54 | NUR ---
Paged Dr. Waddell: PAGER ID: [phone] MESSAGE: RE: Jaquelin Larsen [id number]. Had a message to page you to discuss patient. Noa [phone]
[2020-06-22 11:00] VITALS: BP 163/94
[2020-06-22] MEDS ORDERED: PANT-47 PO (11:39)
--- NOTE | 2020-06-22 12:59 | NUR ---
Patient stable for discharge per physicians order. all discharge instructions reviewed with patient and all questions answered. New prescription sent to [facility] on [address]. extended PIV discontinued. catheter intact and bleeding site controlled. Tele monitor discontinued and telephone lineworker notified. All belongings placed in patient belongings bag and sent with patient. patient wheeled to lobby in wheelchair and left in personal vehicle with mother.
--- NOTE | 2020-06-22 13:08 | NUR ---
Orientee documentation: I have reviewed and agree with all interventions, assessments performed and documented by Wendy MERINO. Orientee Medication Administration: For this medication-pass time frame, all medication were reviewed, dispensed, administered and documented per hospital policy by ANGELIQUE Nguyen.
== END 2020-06-22 12:45 | disposition home or self-care (01) | DRG 919 ==
LOC: ER 08:50 → ED HOLD 11:20 → PCU 3S 14:30
PROVIDERS: ADMIT Internal Medicine; ATTEND Internal Medicine
DX: T85.614A Breakdown (mechanical) of insulin pump, initial encounter (principal); E10.10 Type 1 diabetes mellitus with ketoacidosis without coma; N17.9 Acute kidney failure, unspecified; E87.1 Hypo-osmolality and hyponatremia; E78.00 Pure hypercholesterolemia, unspecified; E78.5 Hyperlipidemia, unspecified; F20.9 Schizophrenia, unspecified; D72.829 Elevated white blood cell count, unspecified; G43.909 Migraine, unspecified, not intractable, without status migrainosus; F41.9 Anxiety disorder, unspecified; I10 Essential (primary) hypertension; Z88.8 Allergy status to other drugs, medicaments and biological substances; Z91.013 Allergy to seafood; Z79.4 Long term (current) use of insulin; Z83.3 Family history of diabetes mellitus; Y83.8 Other surgical procedures as the cause of abnormal reaction of the patient, or of later complication, without mention of misadventure at the time of the procedure; Y92.89 Other specified places as the place of occurrence of the external cause
CPT/HCPCS: 36415; 36600; 71045; 74176; 76700; 76937; 80048; 80053; 81001; 81025; 82803; 82948; 83690; 83735; 84100; 84484; 85018; 85025; 86885; 86900; 86901; 87081; 93005; 96361; 96374; 96375; 99285; C9113; G0378; J0360; J0780; J1170; J1644; J1815; J2405; J3010; J3480; J3490; J7030

== ENCOUNTER 2022-07-14 17:11 | Emergency (ER) | payer MEDICARE, MEDICAID ==
[~2022-07-14] VITALS: Ht 162.6 cm; Wt 86.4 kg
[~2022-07-14 17:11] MED LIST changes: +ESCI20TA39 PO; -ESCI20TA45 PO; -LISI2.5T2 PO; -LOVA20TA2 PO; -OMEP-50 PO; +OMEP40CA21 PO; -PENT400T17 PO; -QUET25TA34 PO; +QUET25TA36 PO; +ROSU40TA22 PO
[2022-07-14] MEDS ORDERED: normal saline 1000ML IV soln IVB ONE (17:25)
[2022-07-14] MEDS ORDERED: ondansetron/PF 4mg/2ml inj IV ONE (17:25)
[2022-07-14] MEDS ORDERED: LORazepam 2 mg/ml vial IV ONE ×2 (17:35→20:05)
[2022-07-14 17:45] VITALS: BP 124/87
[2022-07-14] MEDS ORDERED: diazepam inj 5 MG/ML inj. IV ONE (17:55)
[2022-07-14 18:25] LABS: ALANINE AMINOTRANSFERASE 16 U/L (12-78); ALBUMIN 2.8 G/DL (3.4-5.0); ALBUMIN/GLOBULIN RATIO 0.7 (1.1-1.5); ALKALINE PHOSPHATASE 120 IU/L (46-116); ANION GAP 28 (8-16); ASPARTATE AMINO TRANSFERASE 16 U/L (10-37); BILIRUBIN,TOTAL 0.4 MG/DL (0.1-1.0); BLOOD UREA NITROGEN 13 MG/DL (7-18); BUN/CREATININE RATIO 7.4 (6.6-38.0); CALCIUM 9.2 MG/DL (8.5-10.1); CHLORIDE 102 MMOL/L (99-107); CREATININE 1.76 MG/DL (0.40-0.90); LIPASE 513 U/L (73-393); MAGNESIUM 1.7 MG/DL (1.5-2.4); POTASSIUM 4.6 MMOL/L (3.5-5.1); SODIUM 136 MMOL/L (135-145); TOTAL PROTEIN 6.6 G/DL (6.4-8.2); eGFR 33 ML/MIN
[2022-07-14 18:38] LABS: BASOPHILS % (AUTO) 0.3 % (0-1); EOSINOPHILS % (AUTO) 0.3 % (0-6); LYMPHOCYTES # (AUTO) 3.9 X10'3 (1.1-4.8); LYMPHOCYTES % (AUTO) 24.4 % (21-51); MONOCYTES # (AUTO) 1.4 X10'3 (0-0.9); MONOCYTES % (AUTO) 8.8 % (2-12); NEUTROPHILS # (AUTO) 10.5 X10'3 (1.8-7.7); NEUTROPHILS % (AUTO) 66.2 % (42-75); PLATELET COUNT 392 X10'3 (140-440); WHITE BLOOD COUNT 15.9 X10'3 (4.5-11.0)
[2022-07-14 18:39] LABS: ETHANOL < 0.010 GM/DL (0.0-0.010)
[2022-07-14 18:42] LABS: GLUCOSE 617 MG/DL (70-104)
--- NOTE | 2022-07-14 18:42 | NUR ---
GLUCOSE 617 CO 26.0
[2022-07-14] MEDS ORDERED: normal saline 1000ml 1,000 ML IV ONE ×2 (18:45)
[2022-07-14 18:57] LABS: RED BLOOD COUNT 3.94 X10'6 (4.20-5.60)
[2022-07-14 18:58] LABS: HEMATOCRIT 34.3 % (35.0-45.0); HEMOGLOBIN 11.6 g/dl (12.0-16.0); MEAN CORPUSCULAR HEMOGLOBIN 29.4 PG (27.0-31.0); MEAN CORPUSCULAR HGB CONC 33.8 g/dL (33.0-36.5); RED CELL DISTRIBUTION WIDTH 15.5 % (11.5-14.5)
[2022-07-14] MEDS ORDERED: sodium phosphate inj. 30 MMOL in dextrose 5%-water 250 ML IV PRN (19:00)
[2022-07-14] MEDS ORDERED: Neutra Phos packet PO PRN (19:00)
[2022-07-14] MEDS ORDERED: sodium phosphate inj. 15 MMOL in dextrose 5%-water 250 ML IV PRN (19:00)
[2022-07-14] MEDS ORDERED: potassium Cl 20 mEq SR tablet PO PRN ×2 (19:00)
[2022-07-14] MEDS ORDERED: Potassium Cl inj 20 MEQ in normal saline 1000ml 990 ML IV SCH (19:00)
[2022-07-14] MEDS ORDERED: insulin regular, human U-100 3ml vial - multi-dose IV PRN (19:00)
[2022-07-14] MEDS ORDERED: potassium Cl 40MEQ/1/2NS 520ml 520 ML IV PRN ×2 (19:00)
[2022-07-14] MEDS ORDERED: Insulin Reg/NS 100units/100mL 100 ML IV SCH (19:00)
[2022-07-14 19:15] LABS: ABG BASE EXCESS -28.8 mmol/L (-2.0-2.0); ABG HCO3 2.1 mmol/L (22.0-26.0); ABG OXYGEN SATURATION 96.7 % (94-97); ABG PCO2 (T) 10.6 mmHg (32.0-45.0); ABG PO2 (T) 133.6 mmHg (75.0-100.0); ALLEN'S TEST POSITIVE; FCOHb 0.3 % (0.0-3.9); FMetHb 0.4 % (0.0-1.5); PATIENT TEMPERATURE 36.7; TOTAL HEMOGLOBIN 10.6 G/dl (12.0-16.0)
[2022-07-14 19:26] LABS: PHOSPHORUS 4.4 MG/DL (2.3-4.5)
[2022-07-14 19:56] LABS: CLARITY,URINE CLEAR (Clear); COLOR,URINE YELLOW (Yellow); GLUCOSE, URINE >=1000 mg/dl (Neg); KETONES,URINE >=80 mg/dl (Neg); LEUKOCYTE ESTERASE ,URINE NEGATIVE (Neg); NITRITES, URINE NEGATIVE (Neg); OCCULT BLOOD,URINE SMALL (Neg); PROTEIN,URINE 100 mg/dl (Neg); URINE HCG NEGATIVE (NEG); UROBILINOGEN,URINE 0.2 E.U/dL (0.2-1.0)
[2022-07-14] MEDS ORDERED: K and/or MAG REPLACEMENT MC SCH (20:00)
[2022-07-14 20:01] LABS: UA COLLECTION TYPE CLN CATCH MIDSTREAM
[2022-07-14 20:03] LABS: BACTERIA,URINE NONE SEEN /HPF (Neg); RBC,URINE 0-2 /HPF (0-2); WBC,URINE 0-4 /HPF (0-4)
[2022-07-14 20:04] LABS: SQUAMOUS EPITHELIAL CELL,UR FEW /LPF (FEW); YEAST FEW /HPF (NEGATIVE)
--- NOTE | 2022-07-14 20:05 | NUR ---
CODE BLUE DOCUMENTATION. Addendum: 07/15/22 at 0136 by MIGUEL SEE CODE BLUE DOCUMENTATION
[2022-07-14 20:08] LABS: URINE AMPHETAMINE SCREEN NEGATIVE (Neg); URINE BARBITUATE SCREEN NEGATIVE (Neg); URINE BENZODIAZEPINES SCREEN NEGATIVE (Neg); URINE CANNABINOID SCREEN POSITIVE (Neg); URINE COCAINE SCREEN NEGATIVE (Neg); URINE METHADONE SCREEN NEGATIVE (Neg); URINE OPIATE SCREEN POSITIVE (Neg); URINE PHENCYCLIDINE SCREEN NEGATIVE (Neg)
--- NOTE | 2022-07-14 23:50 | NUR ---
SEE HARD COPY FOR EXPIRATION MEMORANDUM DOCUMENTATION
== END 2022-07-14 23:50 ==
LOC: ER 17:12
DX: E11.10 Type 2 diabetes mellitus with ketoacidosis without coma (principal); R11.2 Nausea with vomiting, unspecified; R10.84 Generalized abdominal pain; E78.00 Pure hypercholesterolemia, unspecified; I10 Essential (primary) hypertension; F41.9 Anxiety disorder, unspecified; F31.9 Bipolar disorder, unspecified; F20.9 Schizophrenia, unspecified; F12.90 Cannabis use, unspecified, uncomplicated; Z86.69 Personal history of other diseases of the nervous system and sense organs; Z98.890 Other specified postprocedural states; Z56.0 Unemployment, unspecified; Z88.8 Allergy status to other drugs, medicaments and biological substances; Z88.5 Allergy status to narcotic agent; Z79.4 Long term (current) use of insulin; Z79.899 Other long term (current) drug therapy
CPT/HCPCS: 36415; 36600; 80053; 80305; 80320; 81001; 81025; 82009; 82803; 82948; 83690; 83735; 84100; 84484; 85018; 85025; 92950; 96361; 96365; 96366; 96375; 96376; 99291; 99292; C1758; J1815; J2405; J3360; J3480; J7030; A4615